=== PATIENT | male | born 1960 | race Caucasian/White ===

== ENCOUNTER 2018-04-10 01:03 | Emergency (ER) | payer OTHER, SELFPAY ==
[2018-04-10 01:04] VITALS: BP 181/92; PULSE 107; RESP 15; TEMP 36.7; O2SAT 96; BMI 27.3
--- NOTE | 2018-04-10 01:32 | ED.DCSUM_ITS ---
- ER Visit Summary Date of Service: 04/10/18 Chief Complaint: [] Left eye pain secondary to foreign body sensation History of Present Illness: The patient is a 57 M complaining of foreign body sensation in his left eye. Since yesterday. He was cleaning out tree limbs and got some branches in his left eye. He is been using Visine. Comes in for further pain and burning tonight. 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 Denies any visual difficulty. Physical Examination: Vital signs reviewed General: Well-nourished well-developed Head: Normocephalic atraumatic Eyes: Pupils equal round and reactive to light extraocular movements intact. Positive left conjunctival irritation redness. Using fluoroscopy seen there is a punctate corneal abrasion centrally over the pupil. No foreign body. ENT: TMs clear no hemotympanum no trauma Neck: Nontender full range of motion Cardiovascular: Regular rate rhythm no murmurs normal S1-S2 Respiratory: No distress clear to auscultation bilaterally chest nontender Abdomen: Soft nontender nondistended normal bowel sounds no masses Back: Nontender no CVA tenderness Extremities: Nontender active range of motion ?4 extremities no trauma Skin: Normal color no trauma Neuro alert oriented cranial nerves II through XII intact normal strength sensation reflexes Test Results: [] Emergency Department Course and Treatment: [] Tetracaine was instilled with good anesthesia. Patient given bacitracin ophthalmic for his corneal abrasion. We will follow-up as an outpatient Treatment Plan: [] Disposition: [] Impression: [] Cornea abrasion This note was generated with [employer] dictation software. It may contain incorrect words, spelling, and punctuation that were not noted in review of the chart prior to signing ED Disposition - Plan for ED Patient: Referrals: Ronak Simmons MD [Primary Care Provider] -
--- NOTE | 2018-04-10 01:32 | ED.DEP ---
ED Disposition - Plan for ED Patient: Disposition: Home or Assisted Living Instructions: ED Eye Injury Corneal Abrasion Referrals: Bart Connor MD [STAFF PHYSICIAN] - Additional Instructions: Use the antibiotic ointment 4 times a day for a week
[2018-04-10] MEDS: Fluorescein 1 MG STRIP 1 STRIP LEFT EYE (01:40)
[2018-04-10 01:42] VITALS: PULSE 107; RESP 15; O2SAT 96
== END 2018-04-10 01:43 | disposition home or self-care (01) ==
PROVIDERS: Emergency Provider Emergency Medicine; Family Provider Family Medicine; PCP Family Medicine
DX: S05.02XA Injury of conjunctiva and corneal abrasion without foreign body, left eye, initial encounter (principal); X58.XXXA Exposure to other specified factors, initial encounter; Y93.H9 Activity, other involving exterior property and land maintenance, building and construction; Y92.007 Garden or yard of unspecified non-institutional (private) residence as the place of occurrence of the external cause; Y99.8 Other external cause status
CPT/HCPCS: 99282

== ENCOUNTER 2019-01-03 19:29 | Inpatient (IN) | payer OTHER, SELFPAY ==
[2019-01-03] VITALS (12 sets, daily range): BP systolic 100–138; BP diastolic 50–70; PULSE 77–88; RESP 12–18; TEMP 36.2–36.6; O2SAT 94–99; BMI 27.0; BMI 26.9
[2019-01-03] MEDS: 0.9% Normal Saline 1,000 ML 1000 ML IV (20:01)
[2019-01-03] MEDS: Ondansetron 4 MG/2 ML Vial IV (20:01)
[2019-01-03 20:03] LABS: Absolute Lymphocyte Count 3.63 X10^3/uL (0.83-4.51); Absolute Neutrophil Count 10.1 X10^3/uL (2.0-7.7); Basophil# 0.06 X10^3/uL; Basophil% 0.4 % (0-1); Eosinophil# 0.16 X10^3/uL; Eosinophils% 1.1 % (0-5); Hematocrit 31.8 % (40-54); Hemoglobin 10.7 g/dL (13.0-16.5); Lymphocyte # 3.63 X10^3/ul (4.0); Lymphocyte % 24.2 % (19-41); Mean Corp Hgb Conc 33.6 g/dL (32-36); Mean Corpuscular Hgb 33.1 pg (27.0-32.0); Mean Corpuscular Volume 98.5 fL (80-94); Mean Platelet Vol. 9.6 fl (6.2-12.0); Monocyte# 0.87 X10^3/uL; Monocyte% 5.8 % (0-10); NRBC Flagged by Analyzer 0 % (0-5); Neutrophil # 10.08 X10^3/uL (2.7-7.7); Platelet Count 265 K/mm3 (150-450); RBC Distribution Width CV 12.9 % (11.6-14.6); RBC Distribution Width SD 46.4 fl (35.1-43.9); Red Blood Count 3.23 M/mm3 (4.6-6.2)
[2019-01-03 20:13] LABS: Anion Gap 10 (5-15); BUN 11 mg/dL (7-18); BUN/Creat Ratio 11.8 RATIO (10-20); Calcium,Total 7.9 mg/dL (8.5-10.1); Chloride 107 mmol/L (98-107); Creatinine, Serum 0.93 mg/dL (0.70-1.30); EST Glomerular Filtration Rate 89 mL/min (>60); Est Glom Filt Rate - Afr Amer 107 mL/min (>60); Estimated Creatinine Clearance 83.76 ml/min; Glucose 140 mg/dL (74-106); Potassium 3.4 mmol/L (3.5-5.1); Sodium Level 138 mmol/L (136-145)
[2019-01-03 20:36] LABS: Lactic Acid 4.2 mmol/L (0.4-2.0)
[2019-01-03] MEDS: 0.9% Normal Saline 1,000 ML 999 ML IV (20:45)
--- NOTE | 2019-01-03 20:56 | ED.DCSUM_ITS ---
- ER Visit Summary Date of Service: 01/03/19 Chief Complaint: [Rectal bleeding] History of Present Illness: The patient is a 58 M [presents to the emergency department with rectal bleeding that started around 1 PM today. Patient states that he has had about 15 episodes of bright red blood per rectum. Patient denies any abdominal pain. Patient has not had symptoms like this before. He is not on any blood thinners. Patient does have history of hypertension. Patient has had some hematuria issues over last couple of weeks. Patient denies recent travel or surgery. He denies antibiotic usage. He denies any chest pain or shortness of breath. Patient apparently had to use the restroom this evening and upon standing felt lightheaded and passed out. The significant other states that she saw twitching that lasted 2 to 3 minutes and she was worried about seizure. EMS was called. On arrival patient denies any abdominal pain. He denies any headache or injury.] Physical Examination: [HEENT-PERRLA, EOMI. Cranial nerves II through XII grossly intact. TMs clear. Mucous membranes moist. No adenopathy. Cardiovascular-regular rate and rhythm without murmur or ectopy Lungs-clear to auscultation, chest wall stable without crepitus or subcu emphysema Abdomen-normoactive bowel sounds, soft, nontender, no rebound or rigidity, no peritoneal signs. Rectal exam-patient has bright red blood around the rectum however there are no hemorrhoids or fissures noted. Extremities-intact ?4, normal range of motion, normal pulses, atraumatic] Test Results: [CBC with differential white count of 15,000, hemoglobin 10.7, hematocrit 32, placed 265. Chemistries unremarkable. BUN was 21) 0.93. Lactate was elevated at 4.2.] Emergency Department Course and Treatment: [She had an IV line established and was given a liter normal same fluid bolus followed by second liter. Type and screen was ordered. Patient is not having any abdominal discomfort at this time. I did discuss case with Dr. Bola Oropeza who is on for general surgery. Hospitalist will admit patient. Source of the bleeding is unclear at this time as patient did have a colonoscopy last time about 5 years ago. In the differential would be diverticular bleed versus ischemic colitis.] Treatment Plan: [Admit] Disposition: [Admit] Impression: [Lower GI bleed Syncope] This note was generated with [employer] dictation software. It may contain incorrect words, spelling, and punctuation that were not noted in review of the chart prior to signing ED Disposition - Plan for ED Patient: Referrals: Ronak Simmons MD [Primary Care Provider] -
--- NOTE | 2019-01-03 20:59 | HP.PCM_ITS ---
Problem List (1) Hemorrhagic shock Status: Acute (2) Rectal bleeding Status: Acute (3) Acute blood loss anemia Status: Acute (4) ETOH abuse Status: Chronic (5) Tobacco use Status: Chronic (6) HTN (hypertension) Status: Chronic Qualifiers: Hypertension type: essential hypertension Qualified Code(s): I10 - Essential (primary) hypertension (7) GERD (gastroesophageal reflux disease) Status: Chronic Qualifiers: Esophagitis presence: esophagitis presence not specified Qualified Code(s): K21.9 - Gastro-esophageal reflux disease without esophagitis History of Present Illness Date of Admission: 01/03/19 Chief Complaint: BRBPR, Syncopal event The patient is a 58 y/o M w/ PMHx: HTN who presents to the [facility] ED on 01/03/19 with history of bleeding per rectum, bright red in appearance currently, noted to have started at ~ 1 pm on day of ED presentation with initially onset diarrhea, ~ 15 bouts, initially bright red blood mixed with stools, but eventually become solely blood and this evening upon standing from toilet he had near syncopal event without LOC with lightheadedness and dizziness, did not hit his head with again recurrent episode while with EMS; however, he was noted to have loss of consciousness that that time, short in duration with EMS noted hypotensive, SBP in the 80s. Patient denied any abdominal pain or cramping with this presentation. He denied any associated fevers or chills. Work-up in the ED included T 97.7, heart rate 88, BP 100/64, respiratory rate 16, 95% on room air, CBC with WBC 15, hemoglobin 10.7, platelet 265 with left shift, BMP with potassium 3.4, glucose 140, lactic acid 4.2, type and screen performed per ED, rectal examination with no fissures or hemorrhiods. In the ED patient administered normal saline 2L, Zofran. Dr. Camacho was consulted per ED and amenable to evaluation of patient. Past Medical History Past Medical History (Chronic Problems): Chronic Problems ETOH abuse (Chronic) Tobacco use (Chronic) HTN (hypertension) (Chronic) GERD (gastroesophageal reflux disease) (Chronic) Allergies No Known Allergies Allergy (Verified 01/03/19 19:30) Home Medications: Ambulatory Orders Medication Instructions Recorded Acetaminophen [Tylenol Extra 1,000 mg PO DAILY PRN PRN 01/03/19 Strength] Valsartan [Diovan] 80 mg PO DAILY 01/03/19 Surgical History: - - Patient denies any prior surgical history. Psychiatric History: No pertinent psych hx Lives: Spouse/ Significant Other Smoking Status: Current every day smoker - Patient smokes approximately 1/2 pack/day cigarette tobacco usage. Tobacco Use: Cigarettes Alcohol: Heavy - Patient notes 3-4 normal size beers daily. Drugs: None - *Family History Maternal History Items: - - Patient notes a maternal family history of heart disease and diabetes. Paternal History Items: - - Patient notes a paternal family history of heart disease and diabetes. Review of Systems Constitutional: Reports: Anorexia, Malaise, Weakness, Fatigue. Denies: Chills, Fever, Weight Change HEENT: Denies: Head Aches, Sinus Congestion, Sinus Drainage Cardiovascular: Reports: Light Headedness, Syncope. Denies: Chest Pain, Chest Pressure, Chest Tightness, Orthopnea, Palpitations, Paroxysmal Noc. Dyspnea Respiratory: Denies: Cough, Shortness of Breath, Shortness of breath at rest, Shortness of breath upon exertion, Sputum production, Wheezing Gastrointestinal: Reports: Diarrhea, - - Red blood per rectum.. Denies: Abdominal Pain, Nausea, Vomiting Genitourinary: Denies: Dysuria Musculoskeletal: Reports: Joint Pain. Denies: Joint Tenderness Skin: Denies: Rash, Wounds Neurological: Denies: Numbness, Tingling, Focal weakness Psychiatric: Denies: Anxiety, Depression, Homicidal Ideations, Suicidal Ideations Hematologic/ Lymphatic: Reports: Anemia. Denies: Easy Bruising, Easy Bleeding VTE Information - Inpt Only VTE Present on Admission: No VTE Mechan Device Prophylaxis: SCD's VTE Pharm Prophylaxis ordered?: No Reason prophylaxis not ordered:: Medical Contraindication Patient Problems: Active and Suspected Problems Hemorrhagic shock (Acute) Rectal bleeding (Acute) Acute blood loss anemia (Acute) Subjective: Seated upright in ED bed, mildly pale pallor, currently no acute distress. Objective: Physical Examination: General: awake, alert, oriented x 3 and cooperative, seated upright in the ED bed in no apparent distress. Skin: Pale color, turgor, no icterus, cyanosis. HEENT: AT/NC, EOMI, PERRLA, moderately dry MM, no carotid bruits or JVD noted. Lungs: Diminished breath sounds bilaterally, greater bilateral bases, no rales, ronchi or wheezing. Heart: Regular rate and rhythm; no gallop, rub audible. Abdomen: soft, NTTP, ND, hyperactive BS, no HSM, active BRBPR without fissures/hemorrhoids. Extremities: no cyanosis, clubbing, or edema. Neurological: patient awake, alert, oriented x 3; cognitive function intact; pupils equally reactive to light and accomodation; cranial nerves II-XII grossly normal, moving all 4 extremities, no focal deficits, strength moderately to severely globally Hailey secondary to acute presentation. Psychiatric: affect appears fatigued, mildly flat, no acute evidence of depressive or anxiety feelings. - Physical Exam Vitals/I&O's: Vital Signs Temp Pulse Resp BP Pulse Ox 97.7 F L 86 17 101/58 L 96 01/03/19 19:30 01/03/19 20:43 01/03/19 20:43 01/03/19 20:43 01/03/19 20:43 Oxygen Delivery Method Room Air Weight: 178 lb Body Mass Index (BMI) 27.0 Intake and Output for Last 24 Hours 01/01/19 01/02/19 01/03/19 23:59 23:59 23:59 Intake Total 1000 / 1000 Balance 1000 / 1000 Laboratory Results 01/03/19 19:32: WBC 15.0 H, RBC 3.23 L, Hgb 10.7 L, Hct 31.8 L, MCV 98.5 H, MCH 33.1 H, MCHC 33.6, RDW Std Deviation 46.4 H, RDW Coeff of Breanne 12.9, Plt Count 265, MPV 9.6, Immature Gran % (Auto) 1.500 H, Neut % (Auto) 67.0, Lymph % (Auto) 24.2, Union % (Auto) 5.8, Eos % (Auto) 1.1, Baso % (Auto) 0.4, Absolute Neuts (auto) 10.1 H, Absolute Lymphs (auto) 3.63, Nucleated RBC % 0 01/03/19 19:32: Sodium 138, Potassium 3.4 L, Chloride 107, Carbon Dioxide 21.0, Anion Gap 10, BUN 11, Creatinine 0.93, Estim Creat Clear Calc 83.76, Est GFR (MDRD) Af Amer 107, Est GFR (MDRD) Non-Af 89, BUN/Creatinine Ratio 11.8, Glucose 140 H, Calcium 7.9 L 01/03/19 19:32: Blood Type A POSITIVE, Antibody Screen NEGATIVE 01/03/19 19:55: Lactic Acid 4.2 H* Current Medications Sodium Chloride () 1,000 mls @ 999 mls/hr IV .Q1H1M ONE Stop: 01/03/19 21:49 Last Admin: 01/03/19 20:45 Dose: 999 mls/hr Documented by: Assessment/Plan All Active Problems Hemorrhagic shock (Acute) Rectal bleeding (Acute) Acute blood loss anemia (Acute) The patient is a 58 y/o M w/ PMHx: HTN who presents to the [facility] ED on 01/03/19 with history of bleeding per rectum, bright red in appearance currently, noted to have started at ~ 1 pm on day of ED presentation with initially onset diarrhea, ~ 15 bouts, initially bright red blood mixed with stools, but eventually become solely blood and this evening upon standing from toilet he had near syncopal event without LOC with lightheadedness and dizziness, did not hit his head with again recurrent episode while with EMS; however, he was noted to have loss of consciousness that that time, short in duration. 1. Hemorrhagic Shock secondary to Acute Rectal Bleeding w/ resultant Acute Blood Loss Anemia w/ ? Acute Bacterial Colitis: Admission Hgb 10.7 prior to this 14 appears baseline but that was in 2015, unclear exact etiology, possibly infection given history of initial diarrhea with WBC 15 with L shift. Given Hypotension concurrently, improved some with IVFs but ongoing active bleeding, will admit to the ICU, maintain on IVFs, obtain serial H+H q 4 hours, obtain T+S w/ cross for PRBC administration with planned administration of 2 u initially given hypotension and syncope with his bleeding, NPO status, maintain on IV PPI, obtain stool cultures/c-diff if recurrent diarrhea, initiate zosyn given unclear if possible colitis related, pending Dr. Camacho, General Surgery and Dr. Garcia, ICU physician consultations. Defer CT A/P upon admission given hypotension, abdomen benign upon evaluation and desire to stabilize in the ICU. May de-escalate abx therapy. 2. Hypertension: Holding patient Diovan given acute presentation with hypotension, restart once clinically appropriate. 3. Tobacco Abuse: Encouraged cessation, inpatient consultation per RT, NR if desired. 4. EtOH Abuse: Patient notes routine consumption of at least 3-4 normal-sized beers per day. Patient states that he has been days without and never had any withdrawal symptoms however to be cautious will maintain on CIWA protocol, MVI, thiamine and folic acid. Management consulted for substance abuse. Magnesium and phosphorus levels requested. 5. GERD: Maintained on IV PPI. 6. DVT prophylaxis: SCDs, defer chemoprophylaxis given acute presentation as noted #1. Code Visit Inpatient E&M: 55821 Init Hosp L3
[2019-01-03 23:02] LABS: Hematocrit 27.9 % (40-54); Hemoglobin 9.2 g/dL (13.0-16.5)
[2019-01-03 23:11] LABS: Phosphorus 2.5 mg/dL (2.5-4.9)
[2019-01-04] VITALS (28 sets, daily range): BP systolic 98–157; BP diastolic 41–86; PULSE 71–90; RESP 12–19; TEMP 35.9–36.8; O2SAT 93–98
[2019-01-04] LABS: Reflex Lactate? Y
[2019-01-04 00:43] LABS: Lactic Acid 2.5 mmol/L (0.4-2.0)
[2019-01-04 03:22] LABS: Hematocrit 29.6 % (40-54); Hemoglobin 9.7 g/dL (13.0-16.5)
[2019-01-04 03:36] LABS: Anion Gap 6 (5-15); BUN 10 mg/dL (7-18); BUN/Creat Ratio 12.6 RATIO (10-20); Calcium,Total 7.3 mg/dL (8.5-10.1); Chloride 112 mmol/L (98-107); Creatinine, Serum 0.79 mg/dL (0.70-1.30); EST Glomerular Filtration Rate 107 mL/min (>60); Est Glom Filt Rate - Afr Amer 129 mL/min (>60); Estimated Creatinine Clearance 98.61 ml/min; Glucose 110 mg/dL (74-106); Potassium 4.4 mmol/L (3.5-5.1); Sodium Level 141 mmol/L (136-145)
--- NOTE | 2019-01-04 06:48 | CON.PCM_ITS ---
Reason for Consult Date of Consultation: 01/04/19 Reason for Consultation: Rectal bleeding, hypotensive History of Present Illness: The patient is a 58-year-old male, with a history as outlined below, who presented to the emergency department on January 03 with complaints of rectal bleeding. The patient reports the presence of diarrhea, which began yesterday with upwards of 15 bowel movements. The patient did report that during the last several bowel movements, he did have bright red blood per rectum. Apparently, during EMS transportation the patient became hypotensive and reportedly passed out. The patient denies ever having experienced an episode similar to this in the past. The patient does currently smoke 0.5 packs of cigarettes per day. In addition, he does routinely drink 2-4 beers per night. He has never experienced any withdrawal symptoms. He does not regularly utilize NSAIDs on a daily basis. He denies the presence of abdominal pain, nausea or vomiting. On presentation to the emergency department, the patient was noted to be afebrile and hemodynamically stable. He was maintaining appropriate oxygen saturations on room air. Laboratory evaluation revealed an elevated white blood cell count to 15,000. Hemoglobin was noted to be 10.7 g/dL. Chemistry profile was notable for a potassium of 3.4. Lactate was elevated to 4.2. The patient was provided with supplemental IV fluids. The case was discussed with general surgery. Type and cross along with orders for blood transfusion were placed. The patient was subsequently admitted to the medical intensive care unit for further management. Overnight, nursing staff reports no further episodes of rectal bleeding. The patient has remained hemodynamically stable. He has been and continues to be afebrile. He is currently documented to be overall net +2 L for the hospital admission. Past Medical History Past Medical History (Chronic Problems): Chronic Problems ETOH abuse (Chronic) Tobacco use (Chronic) HTN (hypertension) (Chronic) GERD (gastroesophageal reflux disease) (Chronic) Allergies No Known Allergies Allergy (Verified 01/03/19 19:30) Home Medications: Ambulatory Orders Medication Instructions Recorded Acetaminophen [Tylenol Extra 1,000 mg PO DAILY PRN PRN 01/03/19 Strength] Valsartan [Diovan] 80 mg PO DAILY 01/03/19 Surgical History: - - Patient denies any prior surgical history. Psychiatric History: No pertinent psych hx Lives: Spouse/ Significant Other Smoking Status: Current every day smoker - Patient smokes approximately 1/2 pack/day cigarette tobacco usage. Tobacco Use: Cigarettes Alcohol: Heavy - Patient notes 3-4 normal size beers daily. Drugs: None - *Family History Maternal History Items: - - Patient notes a maternal family history of heart disease and diabetes. Paternal History Items: - - Patient notes a paternal family history of heart disease and diabetes. Review of Systems Constitutional: Denies: Chills, Fever, Weight Change Eyes: Denies: Blurred vision, Double vision HEENT: Denies: Head Aches, Sinus Congestion, Sinus Drainage Cardiovascular: Denies: Chest Pain, Palpitations Respiratory: Denies: Cough, Shortness of breath at rest, Sputum production Gastrointestinal: Reports: Diarrhea, Hematochezia. Denies: Abdominal Pain Genitourinary: Denies: Dysuria Musculoskeletal: Denies: Joint Pain, Joint Tenderness Skin: Denies: Rash, Wounds Neurological: Reports: Balance problems Psychiatric: Denies: Anxiety, Depression, Homicidal Ideations, Suicidal Ideations Hematologic/ Lymphatic: Reports: Anemia, Hx of blood transfusion Patient Problems: Active and Suspected Problems Hemorrhagic shock (Acute) Rectal bleeding (Acute) Acute blood loss anemia (Acute) Objective: The patient's most recent lab work, culture data and imaging studies have all been personally reviewed. - Physical Exam Vitals/I&O's: Vital Signs Temp Pulse Resp BP Pulse Ox 97.9 F 78 18 109/68 95 01/04/19 04:44 01/04/19 06:00 01/04/19 06:00 01/04/19 06:00 01/04/19 06:00 Oxygen Delivery Method Room Air Weight: 178 lb 9.191 oz Body Mass Index (BMI) 26.9 Intake and Output for Last 24 Hours 01/02/19 01/03/19 01/04/19 23:59 23:59 23:59 Intake Total 2576 / 2585.38 713.00 / 713.00 Output Total 400 / 400 875 / 875 Balance 2176 / 2185.38 -162.00 / -162.00 General: Alert, Oriented x3, Cooperative, No apparent distress HEENT: Atraumatic, PERRLA, Normocephalic Oral: No Gingival or Mucosal Lesions/ Ulcerations Neck: Supple, No Nodes, Trachea Midline Lungs: No rhonchi, No wheeze, No rales, Diminished Cardiovascular: Regular rate, Regular Rhythm, Normal S1, Normal S2 Abdomen: Bowel Sounds Present, Soft, Non Tender Extremities: No clubbing, No cyanosis, No edema Skin: No breakdown Musculoskeletal: No Tenderness to Palpation of Joints or Extremities Lymphatic: No Cervical, Supraclavicular, or Inguinal Adenopathy Neurological: Cranial nerves II-XII grossly intact, Neuro grossly intact Psych/Mental Status: Normal Affect, Appropriate Labs (Last 48 Hours) 01/03/19 01/03/19 01/03/19 19:32 19:32 19:32 WBC 15.0 H RBC 3.23 L Hgb 10.7 L Hct 31.8 L MCV 98.5 H MCH 33.1 H MCHC 33.6 RDW Std Deviation 46.4 H RDW Coeff of Breanne 12.9 Plt Count 265 MPV 9.6 Immature Gran % (Auto) 1.500 H Neut % (Auto) 67.0 Lymph % (Auto) 24.2 [place] % (Auto) 5.8 Eos % (Auto) 1.1 Baso % (Auto) 0.4 Absolute Neuts (auto) 10.1 H Absolute Lymphs (auto) 3.63 Nucleated RBC % 0 Sodium 138 Potassium 3.4 L Chloride 107 Carbon Dioxide 21.0 Anion Gap 10 BUN 11 Creatinine 0.93 Estim Creat Clear Calc 83.76 Est GFR (MDRD) Af Amer 107 Est GFR (MDRD) Non-Af 89 BUN/Creatinine Ratio 11.8 Glucose 140 H Lactic Acid Calcium 7.9 L Phosphorus Magnesium Total Bilirubin Direct Bilirubin AST ALT Alkaline Phosphatase Total Protein Albumin Blood Type A POSITIVE Antibody Screen NEGATIVE Crossmatch 01/03/19 01/03/19 01/03/19 19:32 19:32 19:55 WBC RBC Hgb Hct MCV MCH MCHC RDW Std Deviation RDW Coeff of Breanne Plt Count MPV Immature Gran % (Auto) Neut % (Auto) Lymph % (Auto) [place] % (Auto) Eos % (Auto) Baso % (Auto) Absolute Neuts (auto) Absolute Lymphs (auto) Nucleated RBC % Sodium Potassium Chloride Carbon Dioxide Anion Gap BUN Creatinine Estim Creat Clear Calc Est GFR (MDRD) Af Amer Est GFR (MDRD) Non-Af BUN/Creatinine Ratio Glucose Lactic Acid 4.2 H* Calcium Phosphorus 2.5 Magnesium 2.0 Total Bilirubin Direct Bilirubin AST ALT Alkaline Phosphatase Total Protein Albumin Blood Type Antibody Screen Crossmatch See Detail 01/03/19 01/03/19 01/03/19 22:45 22:45 22:45 WBC RBC Hgb 9.2 L Hct 27.9 L MCV MCH MCHC RDW Std Deviation RDW Coeff of Breanne Plt Count MPV Immature Gran % (Auto) Neut % (Auto) Lymph % (Auto) [place] % (Auto) Eos % (Auto) Baso % (Auto) Absolute Neuts (auto) Absolute Lymphs (auto) Nucleated RBC % Sodium Potassium Chloride Carbon Dioxide Anion Gap BUN Creatinine Estim Creat Clear Calc Est GFR (MDRD) Af Amer Est GFR (MDRD) Non-Af BUN/Creatinine Ratio Glucose Lactic Acid Cancelled 2.5 H Calcium Phosphorus Magnesium Total Bilirubin Direct Bilirubin AST ALT Alkaline Phosphatase Total Protein Albumin Blood Type Antibody Screen Crossmatch 01/04/19 01/04/19 01/04/19 03:15 03:15 03:15 WBC RBC Hgb 9.7 L Hct 29.6 L MCV MCH MCHC RDW Std Deviation RDW Coeff of Breanne Plt Count MPV Immature Gran % (Auto) Neut % (Auto) Lymph % (Auto) [place] % (Auto) Eos % (Auto) Baso % (Auto) Absolute Neuts (auto) Absolute Lymphs (auto) Nucleated RBC % Sodium 141 Potassium 4.4 Chloride 112 H Carbon Dioxide 23.0 Anion Gap 6 BUN 10 Creatinine 0.79 Estim Creat Clear Calc 98.61 Est GFR (MDRD) Af Amer 129 Est GFR (MDRD) Non-Af 107 BUN/Creatinine Ratio 12.6 Glucose 110 H Lactic Acid Calcium 7.3 L Phosphorus Magnesium Total Bilirubin Pending Direct Bilirubin Pending AST Pending ALT Pending Alkaline Phosphatase Pending Total Protein Pending Albumin Pending Blood Type Antibody Screen Crossmatch Current Medications Acetaminophen (Tylenol) 650 mg PO Q6H PRN PRN PRN Reason: Non-cardiac pain (mod-severe) Hydrocodone Bitart/Acetaminophen ([place] 5mg-325mg) 1 - 2 tablet PO Q4H PRN PRN PRN Reason: Pain Score 4-10/10 Albuterol Sulfate (Ventolin Aerosols) 2.5 mg INHALATION Q2H PRN PRN PRN Reason: dyspnea, wheezing Dextrose (D50w Syringe) 0 gm IV X1 PRN; Protocol PRN Reason: Hypoglycemia Folic Acid (Folic Acid) 1 mg PO DAILY@0800 [facility] Stop: 01/06/19 08:01 Glucagon () 1 mg IM .X1 PRN PRN Reason: Hypoglycemia Hydralazine HCl (Apresoline Iv) 10 mg IV Q4H PRN PRN PRN Reason: SBP > 160 Sodium Chloride () 1,000 mls @ 150 mls/hr IV .Q6H40M [facility] Last Admin: 01/04/19 01:40 Dose: Not Given Documented by: Pantoprazole Sodium 40 mg/ (Sodium Chloride) 110 mls @ 330 mls/hr IV Q12 [facility] Last Infusion: 01/03/19 23:09 Dose: Infused Documented by: Piperacillin Sod/Tazobactam (Sod 3.375 gm/ Sodium Chloride) 50 mls @ 12.5 mls/hr IV Q8 [facility] Last Admin: 01/04/19 05:47 Dose: 12.5 mls/hr Documented by: Sodium Chloride () 500 mls @ 15 mls/hr IV PRN PRN PRN Reason: Blood Transfusion Last Infusion: 01/04/19 03:45 Dose: 0 mls/hr Documented by: Sodium Chloride () 250 mls @ 15 mls/hr IV .[id number] PRN PRN Reason: Saline Flush Last Infusion: 01/04/19 05:47 Dose: 0 mls/hr Documented by: Lorazepam (Ativan) 2 mg PO Q2H PRN PRN; Protocol PRN Reason: CIWA score > 8 but <15 Lorazepam (Ativan) 2 mg PO UD PRN; Protocol PRN Reason: CIWA score >/=15. Lorazepam (Ativan) 2 mg IV Q2H PRN PRN; Protocol PRN Reason: CIWA score > 8 but <15 Lorazepam (Ativan) 2 mg IV UD PRN; Protocol PRN Reason: CIWA score >/=15. Morphine Sulfate () 1 - 2 mg IV Q4H PRN PRN PRN Reason: Pain Score 1-10/10 Multivitamins/Minerals (Multivitamin With Minerals) 1 tablet PO DAILYCM [facility] Ondansetron HCl (Zofran) 4 mg IV Q8H PRN PRN PRN Reason: NAUSEA/VOMITING Sodium Chloride () 10 - 40 ml IV UD PRN PRN Reason: SALINE FLUSH Thi[facility]) [facility] Stop: 01/06/19 17:01 Assessment/Plan Active and Suspected Problems Hemorrhagic shock (Acute) Rectal bleeding (Acute) Acute blood loss anemia (Acute) RECOMMENDATIONS: 1. I do not see an indication for the transfusion of any additional blood products. 2. Okay to discontinue Zosyn and supplemental IV fluids. 3. Plans for endoscopic evaluation, potentially as outpatient, depending on the patient's clinical course. 4. Nicotine replacement therapy can be offered to the patient while admitted to the hospital. 5. Monitor blood counts daily. 6. Continue PPI. 7. Diet can be advanced to clear liquids, following discussion with surgery. IMPRESSIONS: 1. Hematochezia/anemia The patient presented with bright red blood per rectum and a hemoglobin which reached a ham[place] of 9.2 g/dL. Although the patient was initially reported to be hypotensive during EMS transportation, he has remained hemodynamically stable while in the ICU. The patient did receive supplemental IV fluids and has been transfused 2 units of packed red blood cells. He has not experienced any fur ther GI blood loss. The patient was evaluated by general surgery this morning with plans for endoscopic evaluation, which could potentially be accomplished on an outpatient basis, depending on the patient's clinical course. At this time, we will introduce clear liquids and continue to monitor the patient clinically. I do not see an indication for transfusion of any additional blood products. Supplemental IV fluids can be discontinued. Zosyn can also be discontinued from my perspective. Continue PPI therapy. 2. Continuous tobacco dependency I personally spent 5 minutes discussing the deleterious effects of continued tobacco use with the patient, including modalities which could be utilized to achieve a smoke-free lifestyle. If interested, the patient can be offered nicotine replacement therapy while admitted to the hospital. 3. Alcohol dependency The patient denies ever having experienced any withdrawal symptoms. CIWA protoc ol has been initiated. 4. Hypertension Complicates care, management, recovery and prognosis. Home antihypertensives are currently on hold. This note was generated with [employer] software. It may contain incorrect words, spelling, and punctuation that were not noted in checking the note before signing. Code Visit Inpatient E&M: 16331 Init Hosp L3 - Behavior Interventions Behavior Intervention: 43861 Smoking Cessation 3-10 min
[2019-01-04 07:01] LABS: AST(SGOT) 12 U/L (15-37); Alanine Aminotransfer ALT/SGPT 20 U/L (16-61); Albumin, Serum 2.6 g/dL (3.2-5.0); Alkaline Phosphatase 60 U/L (45-117); Bilirubin, Direct 0.14 mg/dL (0.00-0.30); Globulin 2.7 g/dL (2.2-4.2); Protein, Total 5.3 g/dL (6.4-8.2)
[2019-01-04 07:09] LABS: International Normalized Ratio 1.1; Prothrombin Time (Protime)PT. 13.7 SECONDS (11.7-14.9)
[2019-01-04] MEDS: 0.9% Normal Saline 1,000 ML 150 ML IV (07:09)
[2019-01-04] MEDS: Thiamine Hydrochloride 100 MG Tablet PO ×2 (08:15→17:12)
[2019-01-04] MEDS: Folic Acid 1 MG Tablet PO (08:15)
[2019-01-04] MEDS: Multivitamins,Ther W-Minerals Tablet 1 TABLET PO (08:15)
[2019-01-04 08:33] LABS: Absolute Lymphocyte Count 1.64 X10^3/uL (0.83-4.51); Absolute Neutrophil Count 5.2 X10^3/uL (2.0-7.7); Basophil# 0.03 X10^3/uL; Basophil% 0.4 % (0-1); Eosinophil# 0.06 X10^3/uL; Eosinophils% 0.8 % (0-5); Hematocrit 32.2 % (40-54); Hemoglobin 10.7 g/dL (13.0-16.5); Lymphocyte # 1.64 X10^3/ul (4.0); Mean Corp Hgb Conc 33.2 g/dL (32-36); Mean Corpuscular Hgb 32.2 pg (27.0-32.0); Mean Platelet Vol. 9.3 fl (6.2-12.0); Monocyte# 0.41 X10^3/uL; Monocyte% 5.5 % (0-10); NRBC Flagged by Analyzer 0 % (0-5); Neutrophil # 5.19 X10^3/uL (2.7-7.7); Neutrophil % 69.4 % (47-70); Platelet Count 202 K/mm3 (150-450); RBC Distribution Width CV 14.5 % (11.6-14.6); RBC Distribution Width SD 51.2 fl (35.1-43.9); Red Blood Count 3.32 M/mm3 (4.6-6.2); White Blood Count 7.5 K/mm3 (4.4-11.0)
[2019-01-04] MEDS: 0.9% Saline Lock 10 ML Syringe IV (09:50)
--- NOTE | 2019-01-04 10:20 | PCM.PN.HOSP ---
Patient Problems: Active and Suspected Problems Hemorrhagic shock (Acute) Rectal bleeding (Acute) Acute blood loss anemia (Acute) Subjective: Patient seen and examined. He was admitted with a complaint of bright red bleeding per rectum with associated syncope. On admission hemoglobin was 10.7. Lactic acid was elevated at 4.2. He was hydrated with IV fluids. General surgery on board. Patient has no complaints this morning. He has not had any rectal bleeding since admission. He denies any lightheadedness or dizziness, palpitations, chest pain, diarrhea vomiting. Review of systems otherwise negative. Vitals/I&O's: Vital Signs Temp Pulse Resp BP Pulse Ox 98.2 F 84 18 148/86 H 97 01/04/19 08:00 01/04/19 10:00 01/04/19 10:00 01/04/19 10:00 01/04/19 10:00 Oxygen Delivery Method Room Air Weight: 178 lb 9.191 oz Body Mass Index (BMI) 26.9 Intake and Output for Last 24 Hours 01/02/19 01/03/19 01/04/19 23:59 23:59 23:59 Intake Total 2576 / 2585.38 1675.50 / 1675.50 Output Total 400 / 400 875 / 875 Balance 2176 / 2185.38 800.50 / 800.50 General: Alert, Oriented x3, Cooperative, No apparent distress HEENT: Atraumatic, PERRLA, EOMI, Normocephalic Oral: Moist Mucosa Neck: Supple, No JVD, Negative Carotid Bruits Lungs: Clear to auscultation, Normal air movement, No rhonchi, No wheeze, No rales Cardiovascular: Regular rate, Regular Rhythm, Normal S1, Normal S2, No murmurs Abdomen: Bowel Sounds Present, Soft, Non Tender, Non-Distended, No Hepato-splenomegaly Extremities: No clubbing, No cyanosis, No edema, Capillary Refill Less than 3 Seconds Skin: No rashes, No breakdown Musculoskeletal: No Tenderness to Palpation of Joints or Extremities Lymphatic: No Cervical, Supraclavicular, or Inguinal Adenopathy Neurological: Cranial nerves II-XII grossly intact Psych/Mental Status: Normal Affect, Appropriate, Alert and oriented to time, place, person, mood and affect Laboratory Results 01/03/19 19:32: WBC 15.0 H, RBC 3.23 L, Hgb 10.7 L, Hct 31.8 L, MCV 98.5 H, MCH 33.1 H, MCHC 33.6, RDW Std Deviation 46.4 H, RDW Coeff of Breanne 12.9, Plt Count 265, MPV 9.6, Immature Gran % (Auto) 1.500 H, Neut % (Auto) 67.0, Lymph % (Auto) 24.2, [place] % (Auto) 5.8, Eos % (Auto) 1.1, Baso % (Auto) 0.4, Absolute Neuts (auto) 10.1 H, Absolute Lymphs (auto) 3.63, Nucleated RBC % 0 01/03/19 19:32: Sodium 138, Potassium 3.4 L, Chloride 107, Carbon Dioxide 21.0, Anion Gap 10, BUN 11, Creatinine 0.93, Estim Creat Clear Calc 83.76, Est GFR (MDRD) Af Amer 107, Est GFR (MDRD) Non-Af 89, BUN/Creatinine Ratio 11.8, Glucose 140 H, Calcium 7.9 L 01/03/19 19:32: Blood Type A POSITIVE, Antibody Screen NEGATIVE 01/03/19 19:32: Phosphorus 2.5, Magnesium 2.0 01/03/19 19:32: Crossmatch See Detail 01/03/19 19:55: Lactic Acid 4.2 H* 01/03/19 22:45: Hgb 9.2 L, Hct 27.9 L 01/03/19 22:45: Lactic Acid Cancelled 01/03/19 22:45: Lactic Acid 2.5 H 01/04/19 03:15: Hgb 9.7 L, Hct 29.6 L 01/04/19 03:15: Sodium 141, Potassium 4.4, Chloride 112 H, Carbon Dioxide 23.0, Anion Gap 6, BUN 10, Creatinine 0.79, Estim Creat Clear Calc 98.61, Est GFR (MDRD) Af Amer 129, Est GFR (MDRD) Non-Af 107, BUN/Creatinine Ratio 12.6, Glucose 110 H, Calcium 7.3 L 01/04/19 03:15: Total Bilirubin 0.70, Direct Bilirubin 0.14, AST 12 L, ALT 20, Alkaline Phosphatase 60, Total Protein 5.3 L, Albumin 2.6 L, Globulin 2.7 01/04/19 06:55: PT 13.7, INR 1.1 01/04/19 08:05: WBC 7.5, RBC 3.32 L, Hgb 10.7 L, Hct 32.2 L, MCV 97.0 H, MCH 32.2 H, MCHC 33.2, RDW Std Deviation 51.2 H, RDW Coeff of Breanne 14.5, Plt Count 202, MPV 9.3, Immature Gran % (Auto) 1.900 H, Neut % (Auto) 69.4, Lymph % (Auto) 22.0, [place] % (Auto) 5.5, Eos % (Auto) 0.8, Baso % (Auto) 0.4, Absolute Neuts (auto) 5.2, Absolute Lymphs (auto) 1.64, Nucleated RBC % 0 Current Medications Acetaminophen (Tylenol) 650 mg PO Q6H PRN PRN PRN Reason: Non-cardiac pain (mod-severe) Hydrocodone Bitart/Acetaminophen ([place] 5mg-325mg) 1 - 2 tablet PO Q4H PRN PRN PRN Reason: Pain Score 4-10/10 Albuterol Sulfate (Ventolin Aerosols) 2.5 mg INHALATION Q2H PRN PRN PRN Reason: dyspnea, wheezing Dextrose (D50w Syringe) 0 gm IV X1 PRN; Protocol PRN Reason: Hypoglycemia Folic Acid (Folic Acid) 1 mg PO DAILY@0800 [facility] Stop: 01/06/19 08:01 Last Admin: 01/04/19 08:15 Dose: 1 mg Documented by: Glucagon () 1 mg IM .X1 PRN PRN Reason: Hypoglycemia Hydralazine HCl (Apresoline Iv) 10 mg IV Q4H PRN PRN PRN Reason: SBP > 160 Pantoprazole Sodium 40 mg/ (Sodium Chloride) 110 mls @ 330 mls/hr IV Q12 [facility] Last Infusion: 01/04/19 10:10 Dose: Infused Documented by: Sodium Chloride () 500 mls @ 15 mls/hr IV PRN PRN PRN Reason: Blood Transfusion Last Infusion: 01/04/19 09:37 Dose: Infused Documented by: Sodium Chloride () 250 mls @ 15 mls/hr IV .[id number] PRN PRN Reason: Saline Flush Last Infusion: 01/04/19 10:10 Dose: 15 mls/hr Documented by: Lorazepam (Ativan) 2 mg PO Q2H PRN PRN; Protocol PRN Reason: CIWA score > 8 but <15 Lorazepam (Ativan) 2 mg PO UD PRN; Protocol PRN Reason: CIWA score >/=15. Lorazepam (Ativan) 2 mg IV Q2H PRN PRN; Protocol PRN Reason: CIWA score > 8 but <15 Lorazepam (Ativan) 2 mg IV UD PRN; Protocol PRN Reason: CIWA score >/=15. Multivitamins/Minerals (Multivitamin With Minerals) [facility] Last Admin: 01/04/19 08:15 Dose: 1 tablet Documented by: Ondansetron HCl (Zofran) 4 mg IV Q8H PRN PRN PRN Reason: NAUSEA/VOMITING Sodium Chloride () 10 - 40 ml IV UD PRN PRN Reason: SALINE FLUSH Last Admin: 01/04/19 09:50 Dose: 10 ml Documented by: Thiamine HCl (Vitamin B1) [facility] Stop: 01/06/19 17:01 Last Admin: 01/04/19 08:15 Dose: 100 mg Documented by: STROKE Vital Signs/Narrative: Vital Signs Temp Pulse Resp BP BP Pulse Ox 01/04/19 10:00 84 18 148/86 H 97 01/04/19 09:00 77 16 143/75 H 97 01/04/19 08:00 98.2 F 78 14 139/66 H 98 01/04/19 07:40 80 01/04/19 07:00 85 13 142/73 H 142/73 H 98 01/04/19 06:44 79 14 127/65 H 97 Medical Necessity - Tobacco Use Smoking Status: Current every day smoker - Patient smokes approximately 1/2 pack/day cigarette tobacco usage. Tobacco Use: Cigarettes Assessment/Plan All Active Problems Hemorrhagic shock (Acute) Rectal bleeding (Acute) Acute blood loss anemia (Acute) 1. Acute lower GI bleed BP was at its lowest, 98/52 on admission, which resolved with administration of IVF Hb was 10.7 on admission, and dropped mildly to 9.2; he was however transfused with 2 units of PRBCs on admisison o/a of hypotension and ongoing bleeding general surgery on board- since patient has stopped bleeding, plan per surgery, to hold off on emergent colonoscopy for now. If he remains stable, to have colonoscopy on outpatient basis on Tuesday Hb this morning is10.7 2. Hypertension: diovan was held on admission o/.a of hypotension. BP now 148/86. Will resume BP meds 3. Nicotine dependence: counselled to quit. 4. Alcohol abuse: States he drinks about 3-4 beers every day. On CIWA protocol. On multivitamin, thiamine and folic acid. 5. GERD: On PPI DVT prophylaxis: SCDs Code Visit Inpatient E&M: 44927 Subs Hosp L2
--- NOTE | 2019-01-04 11:20 | CASEMGMT ---
SW met w/pt in room, pt's girlfriend also present. SW spoke w/pt about prior level of function and anticipated discharge plan. PCP: Dr. Simmons Specialists: Pt was to see physician for blood in urine tomorrow, can't remember the name of the doctor. Girlfriend plans to cancel the appointment. Preferred Pharmacy: [facility] Insurance/Prescription benefit: [facility] LW/POA: POA form on paper chart, girlfriend Sarah Blankenship is listed as pt's Medical POA. LW provision is initialed in POA form LNOK: Lives with girlfriend, has brothers, sister, children in [facility] Prior level of function: Pt fully independent, lives home w/girlfriend. Pt drives, no assist for any ADL's. DME/HHC: Pt uses no DME, no history of home health care. Plan: Home Pt plans to return home at discharge, it is not anticipated pt will have any homegoing needs. SW did ask pt about alcohol consumption, as he reports to drink 3-4 beers per evening. Pt declined that this is a problem, as does his girlfriend. Pt declined any referrals for alcohol use at this time. JUAN Nobles
--- NOTE | 2019-01-04 13:49 | PCM.CONS.GEN ---
Reason for Consult Date of Consultation: 01/04/19 Reason for Consultation: hematochezia History of Present Illness: The patient is a 58 year old M Who presents with a one-day history of bright red blood per rectum and some slightly darker blood mixed within the stools. The patient noted onset of diarrhea which he describes as approximately 15 episodes initially with bright red blood mixed within the stools but eventually only blood. As the day progressed the patient had a near-syncopal event feeling lightheaded and dizzy but did not actually lose consciousness. he presented to [facility] with these complaints. He is found to have a hemoglobin of 10.7 a mildly elevated white count of 95 he was found to be mildly hypotensive. I was contacted and asked if I could perform endoscopy and I sent her be comfortable managing the patient. Due to concerns of possible significant anemia and hypovolemia, he was admitted to the ICU. He was hydrated and type and screen was obtained. The patient had no further rectal bleeding since admission to the hospital. He states he is feeling reasonably today.the patient has no complaints of abdominal pain currently. He states he is hungry and wishes he could eat area did The patient does have a history of significant alcohol abuse and tobacco use. Past Medical History Past Medical History (Chronic Problems): Chronic Problems ETOH abuse (Chronic) Tobacco use (Chronic) HTN (hypertension) (Chronic) GERD (gastroesophageal reflux disease) (Chronic) Allergies No Known Allergies Allergy (Verified 01/03/19 19:30) Home Medications: Ambulatory Orders Medication Instructions Recorded Acetaminophen [Tylenol Extra 1,000 mg PO DAILY PRN PRN 01/03/19 Strength] Valsartan [Diovan] 80 mg PO DAILY 01/03/19 Surgical History: - - Patient denies any prior surgical history. Psychiatric History: No pertinent psych hx Lives: Spouse/ Significant Other Smoking Status: Current every day smoker - Patient smokes approximately 1/2 pack/day cigarette tobacco usage. Tobacco Use: Cigarettes Alcohol: Heavy - Patient notes 3-4 normal size beers daily. Drugs: None - *Family History Maternal History Items: - - Patient notes a maternal family history of heart disease and diabetes. Paternal History Items: - - Patient notes a paternal family history of heart disease and diabetes. Review of Systems Constitutional: Reports: Anorexia, Malaise, Weakness, Fatigue HEENT: Denies: Head Aches, Sinus Congestion, Sinus Drainage Cardiovascular: Reports: Light Headedness, Syncope. Denies: Chest Pain, Palpitations Respiratory: Denies: Cough, Shortness of breath at rest, Sputum production Gastrointestinal: Reports: Diarrhea. Denies: Abdominal Pain, Nausea, Vomiting Genitourinary: Denies: Dysuria Musculoskeletal: Denies: Joint Pain, Joint Tenderness Skin: Denies: Rash, Wounds Neurological: Denies: Numbness, Tingling, Focal weakness Psychiatric: Denies: Anxiety, Depression, Homicidal Ideations, Suicidal Ideations Hematologic/ Lymphatic: Denies: Easy Bruising, Easy Bleeding Patient Problems: Active and Suspected Problems Hemorrhagic shock (Acute) Rectal bleeding (Acute) Acute blood loss anemia (Acute) - Physical Exam Vitals/I&O's: Vital Signs Temp Pulse Resp BP Pulse Ox 98.0 F 79 14 129/63 H 96 01/04/19 12:00 01/04/19 12:00 01/04/19 12:00 01/04/19 12:00 01/04/19 12:00 Oxygen Delivery Method Room Air Weight: 81 kg Body Mass Index (BMI) 26.9 Intake and Output for Last 24 Hours 01/02/19 01/03/19 01/04/19 23:59 23:59 23:59 Intake Total 2576 / 2585.38 2275.50 / 2275.50 Output Total 400 / 400 1675 / 1675 Balance 2176 / 2185.38 600.50 / 600.50 General: Alert, Oriented x3, Cooperative Lungs: Rhonchi Cardiovascular: Regular rate, No murmurs Abdomen: Bowel Sounds Present, Soft, Non Tender Laboratory Results 01/03/19 19:32: WBC 15.0 H, RBC 3.23 L, Hgb 10.7 L, Hct 31.8 L, MCV 98.5 H, MCH 33.1 H, MCHC 33.6, RDW Std Deviation 46.4 H, RDW Coeff of Breanne 12.9, Plt Count 265, MPV 9.6, Immature Gran % (Auto) 1.500 H, Neut % (Auto) 67.0, Lymph % (Auto) 24.2, [place] % (Auto) 5.8, Eos % (Auto) 1.1, Baso % (Auto) 0.4, Absolute Neuts (auto) 10.1 H, Absolute Lymphs (auto) 3.63, Nucleated RBC % 0 01/03/19 19:32: Sodium 138, Potassium 3.4 L, Chloride 107, Carbon Dioxide 21.0, Anion Gap 10, BUN 11, Creatinine 0.93, Estim Creat Clear Calc 83.76, Est GFR (MDRD) Af Amer 107, Est GFR (MDRD) Non-Af 89, BUN/Creatinine Ratio 11.8, Glucose 140 H, Calcium 7.9 L 01/03/19 19:32: Blood Type A POSITIVE, Antibody Screen NEGATIVE 01/03/19 19:32: Phosphorus 2.5, Magnesium 2.0 01/03/19 19:32: Crossmatch See Detail 01/03/19 19:55: Lactic Acid 4.2 H* 01/03/19 22:45: Hgb 9.2 L, Hct 27.9 L 01/03/19 22:45: Lactic Acid Cancelled 01/03/19 22:45: Lactic Acid 2.5 H 01/04/19 03:15: Hgb 9.7 L, Hct 29.6 L 01/04/19 03:15: Sodium 141, Potassium 4.4, Chloride 112 H, Carbon Dioxide 23.0, Anion Gap 6, BUN 10, Creatinine 0.79, Estim Creat Clear Calc 98.61, Est GFR (MDRD) Af Amer 129, Est GFR (MDRD) Non-Af 107, BUN/Creatinine Ratio 12.6, Glucose 110 H, Calcium 7.3 L 01/04/19 03:15: Total Bilirubin 0.70, Direct Bilirubin 0.14, AST 12 L, ALT 20, Alkaline Phosphatase 60, Total Protein 5.3 L, Albumin 2.6 L, Globulin 2.7 01/04/19 06:55: PT 13.7, INR 1.1 01/04/19 08:05: WBC 7.5, RBC 3.32 L, Hgb 10.7 L, Hct 32.2 L, MCV 97.0 H, MCH 32.2 H, MCHC 33.2, RDW Std Deviation 51.2 H, RDW Coeff of Breanne 14.5, Plt Count 202, MPV 9.3, Immature Gran % (Auto) 1.900 H, Neut % (Auto) 69.4, Lymph % (Auto) 22.0, [place] % (Auto) 5.5, Eos % (Auto) 0.8, Baso % (Auto) 0.4, Absolute Neuts (auto) 5.2, Absolute Lymphs (auto) 1.64, Nucleated RBC % 0 Current Medications Acetaminophen (Tylenol) 650 mg PO Q6H PRN PRN PRN Reason: Non-cardiac pain (mod-severe) Hydrocodone Bitart/Acetaminophen ([place] 5mg-325mg) 1 - 2 tablet PO Q4H PRN PRN PRN Reason: Pain Score 4-10/10 Albuterol Sulfate (Ventolin Aerosols) 2.5 mg INHALATION Q2H PRN PRN PRN Reason: dyspnea, wheezing Dextrose (D50w Syringe) 0 gm IV X1 PRN; Protocol PRN Reason: Hypoglycemia Folic Acid (Folic Acid) 1 mg PO DAILY@0800 [facility] Stop: 01/06/19 08:01 Last Admin: 01/04/19 08:15 Dose: 1 mg Documented by: Glucagon () 1 mg IM .X1 PRN PRN Reason: Hypoglycemia Hydralazine HCl (Apresoline Iv) 10 mg IV Q4H PRN PRN PRN Reason: SBP > 160 Pantoprazole Sodium 40 mg/ (Sodium Chloride) 110 mls @ 330 mls/hr IV Q12 GRANT Last Infusion: 01/04/19 10:10 Dose: Infused Documented by: Sodium Chloride () 500 mls @ 15 mls/hr IV PRN PRN PRN Reason: Blood Transfusion Last Infusion: 01/04/19 09:37 Dose: Infused Documented by: Sodium Chloride () 250 mls @ 15 mls/hr IV .[id number] PRN PRN Reason: Saline Flush Last Infusion: 01/04/19 10:10 Dose: 15 mls/hr Documented by: Lorazepam (Ativan) 2 mg PO Q2H PRN PRN; Protocol PRN Reason: CIWA score > 8 but <15 Lorazepam (Ativan) 2 mg PO UD PRN; Protocol PRN Reason: CIWA score >/=15. Lorazepam (Ativan) 2 mg IV Q2H PRN PRN; Protocol PRN Reason: CIWA score > 8 but <15 Lorazepam (Ativan) 2 mg IV UD PRN; Protocol PRN Reason: CIWA score >/=15. Multivitamins/Minerals ([facility]ivitamin With Minerals) [facility] Last Admin: 01/04/19 08:15 Dose: 1 tablet Documented by: Ondansetron HCl (Zofran) 4 mg IV Q8H PRN PRN PRN Reason: NAUSEA/VOMITING Sodium Chloride () 10 - 40 ml IV UD PRN PRN Reason: SALINE FLUSH Last Admin: 01/04/19 09:50 Dose: 10 ml Documented by: Thiamine HCl (Vitamin B1) [facility] Stop: 01/06/19 17:01 Last Admin: 01/04/19 08:15 Dose: 100 mg Documented by: Assessment/Plan All Active Problems Hemorrhagic shock (Acute) Rectal bleeding (Acute) Acute blood loss anemia (Acute) hematochezia, history of alcohol and tobacco use I would plan to perform upper and lower endoscopy. As the patient's hemoglobin has remained stable and this is not an emergency. I would recommend upper and lower endoscopy to be performed some mild electively. Unfortunately, the endoscopy schedules follow-up Tuesday for elective procedures. The patient did not wish to stay in until Tuesday for his procedure so as long as he has no further bleeding I be comfortable with him being discharged to home with plans to bowel prep on Tuesday and he is artery scheduled for upper and lower endoscopy Tuesday afternoon. The patient stands the risks, benefits, complications and possible Dietz's endoscopy consents to the planned procedures.
[2019-01-05] VITALS: PULSE 78
[2019-01-05 03:43] VITALS: PULSE 67
[2019-01-05] MEDS: 0.9% Saline Lock 10 ML Syringe IV (03:56)
[2019-01-05 03:59] VITALS: BP 165/99; PULSE 82; RESP 15; TEMP 36.2; O2SAT 98
[2019-01-05 04:15] LABS: Absolute Lymphocyte Count 1.98 X10^3/uL (0.83-4.51); Absolute Neutrophil Count 4.2 X10^3/uL (2.0-7.7); Basophil# 0.03 X10^3/uL; Basophil% 0.4 % (0-1); Eosinophil# 0.14 X10^3/uL; Eosinophils% 2.1 % (0-5); Hematocrit 30.2 % (40-54); Lymphocyte # 1.98 X10^3/ul (4.0); Lymphocyte % 29.1 % (19-41); Mean Corp Hgb Conc 33.1 g/dL (32-36); Mean Corpuscular Hgb 32.1 pg (27.0-32.0); Mean Corpuscular Volume 96.8 fL (80-94); Mean Platelet Vol. 9.8 fl (6.2-12.0); Monocyte# 0.43 X10^3/uL; Monocyte% 6.3 % (0-10); NRBC Flagged by Analyzer 0 % (0-5); Neutrophil # 4.15 X10^3/uL (2.7-7.7); Neutrophil % 61.1 % (47-70); Platelet Count 196 K/mm3 (150-450); RBC Distribution Width CV 14.8 % (11.6-14.6); RBC Distribution Width SD 51.8 fl (35.1-43.9); Red Blood Count 3.12 M/mm3 (4.6-6.2); White Blood Count 6.8 K/mm3 (4.4-11.0)
[2019-01-05 04:30] LABS: Anion Gap 6 (5-15); BUN 7 mg/dL (7-18); BUN/Creat Ratio 8.1 RATIO (10-20); Calcium,Total 7.9 mg/dL (8.5-10.1); Chloride 112 mmol/L (98-107); Creatinine, Serum 0.86 mg/dL (0.70-1.30); EST Glomerular Filtration Rate 96 mL/min (>60); Est Glom Filt Rate - Afr Amer 117 mL/min (>60); Estimated Creatinine Clearance 90.58 ml/min; Glucose 104 mg/dL (74-106); Potassium 3.9 mmol/L (3.5-5.1); Sodium Level 144 mmol/L (136-145)
--- NOTE | 2019-01-05 06:26 | PCM.PN.SRG ---
Patient Problems: Active and Suspected Problems Hemorrhagic shock (Acute) Rectal bleeding (Acute) Acute blood loss anemia (Acute) Subjective: 1 bloody stool yesterday afternoon, brown stool overnight. Would like to go home - Physical Exam Vitals/I&O's: Vital Signs Temp Pulse Resp BP Pulse Ox 97.2 F L 82 15 165/99 H 98 01/05/19 03:59 01/05/19 03:59 01/05/19 03:59 01/05/19 03:59 01/05/19 03:59 Oxygen Delivery Method Room Air Weight: 81.9 kg Body Mass Index (BMI) 26.9 Intake and Output for Last 24 Hours 01/03/19 01/04/19 01/05/19 23:59 23:59 23:59 Intake Total 2576 / 2585.38 2756.25 / 2816.25 120 / 120 Output Total 400 / 400 1925 / 2225 975 / 975 Balance 2176 / 2185.38 831.25 / 591.25 -855 / -855 General: Alert, Oriented x3, Cooperative Abdomen: - - the 9 Microbiology Past 72 Hours 01/04/19 14:50 Stool Enteric Bacteriology - Preliminary 01/04/19 14:50 Stool C. difficile DNA Amplification - Final Laboratory Results 01/03/19 19:32: Crossmatch See Detail 01/04/19 03:15: Total Bilirubin 0.70, Direct Bilirubin 0.14, AST 12 L, ALT 20, Alkaline Phosphatase 60, Total Protein 5.3 L, Albumin 2.6 L, Globulin 2.7 01/04/19 06:55: PT 13.7, INR 1.1 01/04/19 08:05: WBC 7.5, RBC 3.32 L, Hgb 10.7 L, Hct 32.2 L, MCV 97.0 H, MCH 32.2 H, MCHC 33.2, RDW Std Deviation 51.2 H, RDW Coeff of Breanne 14.5, Plt Count 202, MPV 9.3, Immature Gran % (Auto) 1.900 H, Neut % (Auto) 69.4, Lymph % (Auto) 22.0, [place] % (Auto) 5.5, Eos % (Auto) 0.8, Baso % (Auto) 0.4, Absolute Neuts (auto) 5.2, Absolute Lymphs (auto) 1.64, Nucleated RBC % 0 01/05/19 03:58: WBC 6.8, RBC 3.12 L, Hgb 10.0 L, Hct 30.2 L, MCV 96.8 H, MCH 32.1 H, MCHC 33.1, RDW Std Deviation 51.8 H, RDW Coeff of Breanne 14.8 H, Plt Count 196, MPV 9.8, Immature Gran % (Auto) 1.000 H, Neut % (Auto) 61.1, Lymph % (Auto) 29.1, [place] % (Auto) 6.3, Eos % (Auto) 2.1, Baso % (Auto) 0.4, Absolute Neuts (auto) 4.2, Absolute Lymphs (auto) 1.98, Nucleated RBC % 0 01/05/19 03:58: Sodium 144, Potassium 3.9, Chloride 112 H, Carbon Dioxide 26.0, Anion Gap 6, BUN 7, Creatinine 0.86, Estim Creat Clear Calc 90.58, Est GFR (MDRD) Af Amer 117, Est GFR (MDRD) Non-Af 96, BUN/Creatinine Ratio 8.1 L, Glucose 104, Calcium 7.9 L Current Medications Acetaminophen (Tylenol) 650 mg PO Q6H PRN PRN PRN Reason: Non-cardiac pain (mod-severe) Hydrocodone Bitart/Acetaminophen ([place] 5mg-325mg) 1 - 2 tablet PO Q4H PRN PRN PRN Reason: Pain Score 4-10/10 Albuterol Sulfate (Ventolin Aerosols) 2.5 mg INHALATION Q2H PRN PRN PRN Reason: dyspnea, wheezing Dextrose (D50w Syringe) 0 gm IV X1 PRN; Protocol PRN Reason: Hypoglycemia Folic Acid (Folic Acid) 1 mg PO DAILY@0800 [facility] Stop: 01/06/19 08:01 Last Admin: 01/04/19 08:15 Dose: 1 mg Documented by: Glucagon () 1 mg IM .X1 PRN PRN Reason: Hypoglycemia Hydralazine HCl (Apresoline Iv) 10 mg IV Q4H PRN PRN PRN Reason: SBP > 160 Pantoprazole Sodium 40 mg/ (Sodium Chloride) 110 mls @ 330 mls/hr IV Q12 [facility] Last Infusion: 01/04/19 22:14 Dose: Infused Documented by: Sodium Chloride () 500 mls @ 15 mls/hr IV PRN PRN PRN Reason: Blood Transfusion Last Infusion: 01/04/19 09:37 Dose: Infused Documented by: Sodium Chloride () 250 mls @ 15 mls/hr IV .[id number] PRN PRN Reason: Saline Flush Last Infusion: 01/04/19 23:51 Dose: 0 mls/hr Documented by: Lorazepam (Ativan) 2 mg PO Q2H PRN PRN; Protocol PRN Reason: CIWA score > 8 but <15 Lorazepam (Ativan) 2 mg PO UD PRN; Protocol PRN Reason: CIWA score >/=15. Lorazepam (Ativan) 2 mg IV Q2H PRN PRN; Protocol PRN Reason: CIWA score > 8 but <15 Lorazepam (Ativan) 2 mg IV UD PRN; Protocol PRN Reason: CIWA score >/=15. Multivitamins/Minerals ([facility]amin [facility] Minerals) [facility] Last Admin: 01/04/19 08:15 Dose: 1 tablet Documented by: Ondansetron HCl (Zofran) 4 mg IV Q8H PRN PRN PRN Reason: NAUSEA/VOMITING Sodium Chloride () 10 - 40 ml IV UD PRN PRN Reason: SALINE FLUSH Last Admin: 01/05/19 03:56 Dose: 20 ml Documented by: Thiamine HCl (Vitamin B1) [facility] Stop: 01/06/19 17:01 Last Admin: 01/04/19 17:12 Dose: 100 mg Documented by: Medical Necessity - Tobacco Use Smoking Status: Current every day smoker - Patient smokes approximately 1/2 pack/day cigarette tobacco usage. Tobacco Use: Cigarettes Assessment/Plan All Active Problems Hemorrhagic shock (Acute) Rectal bleeding (Acute) Acute blood loss anemia (Acute) hematochezia, history of alcohol and tobacco use I would plan to perform upper and lower endoscopy. As I am comfortable with him being discharged to home with plans to bowel prep on Tuesday and he is currently scheduled for upper and lower endoscopy Tuesday afternoon. The patient stands the risks, benefits, complications and possible Dietz's endoscopy consents to the planned procedures.
[2019-01-05 07:00] VITALS: PULSE 67
--- NOTE | 2019-01-05 07:30 | PCM.PN.INT ---
Subjective: The patient was seen and examined at the bedside this morning. Events from the last 24 hours have been reviewed. The patient is currently afebrile, hemodynamically stable and maintaining appropriate oxygen saturations on room air. The patient has had apparently 2 bowel movements for the last 24 hours, neither of which were bloody in nature. He has tolerated a diet without issue. General surgery is planning for outpatient endoscopic evaluation Tuesday. Hemoglobin is stable this morning at 10.0 g/dL. Objective: The patient's most recent lab work, culture data and imaging studies have all been personally reviewed. General: Alert, Oriented x3, Cooperative, No apparent distress HEENT: Atraumatic, PERRLA, Normocephalic Oral: No Gingival or Mucosal Lesions/ Ulcerations Neck: Supple, No Nodes, Trachea Midline Lungs: No rhonchi, No wheeze, No rales, Diminished Cardiovascular: Regular rate, Regular Rhythm, Normal S1, Normal S2 Abdomen: Bowel Sounds Present, Soft, Non Tender Extremities: No clubbing, No cyanosis, No edema Skin: No breakdown Musculoskeletal: No Tenderness to Palpation of Joints or Extremities, No Muscle Wasting Lymphatic: No Cervical, Supraclavicular, or Inguinal Adenopathy Neurological: Cranial nerves II-XII grossly intact, Neuro grossly intact Psych/Mental Status: Alert and oriented to time, place, person, mood and affect Vital Signs Temp Pulse Resp BP Pulse Ox 97.2 F L 82 15 165/99 H 98 01/05/19 03:59 01/05/19 03:59 01/05/19 03:59 01/05/19 03:59 01/05/19 03:59 Oxygen Delivery Method Room Air Weight: 180 lb 8.937 oz Body Mass Index (BMI) 26.9 Intake and Output for Last 24 Hours 01/03/19 01/04/19 01/05/19 23:59 23:59 23:59 Intake Total 2576 / 2585.38 2756.25 / 2816.25 120 / 120 Output Total 400 / 400 1925 / 2225 975 / 975 Balance 2176 / 2185.38 831.25 / 591.25 -855 / -855 Labs (Last 48 Hours) 01/03/19 01/03/19 01/03/19 19:32 19:32 19:32 WBC 15.0 H RBC 3.23 L Hgb 10.7 L Hct 31.8 L MCV 98.5 H MCH 33.1 H MCHC 33.6 RDW Std Deviation 46.4 H RDW Coeff of Breanne 12.9 Plt Count 265 MPV 9.6 Immature Gran % (Auto) 1.500 H Neut % (Auto) 67.0 Lymph % (Auto) 24.2 [place] % (Auto) 5.8 Eos % (Auto) 1.1 Baso % (Auto) 0.4 Absolute Neuts (auto) 10.1 H Absolute Lymphs (auto) 3.63 Nucleated RBC % 0 PT INR Sodium 138 Potassium 3.4 L Chloride 107 Carbon Dioxide 21.0 Anion Gap 10 BUN 11 Creatinine 0.93 Estim Creat Clear Calc 83.76 Est GFR (MDRD) Af Amer 107 Est GFR (MDRD) Non-Af 89 BUN/Creatinine Ratio 11.8 Glucose 140 H Lactic Acid Calcium 7.9 L Phosphorus Magnesium Total Bilirubin Direct Bilirubin AST ALT Alkaline Phosphatase Total Protein Albumin Globulin Blood Type A POSITIVE Antibody Screen NEGATIVE Crossmatch 01/03/19 01/03/19 01/03/19 19:32 19:32 19:55 WBC RBC Hgb Hct MCV MCH MCHC RDW Std Deviation RDW Coeff of Breanne Plt Count MPV Immature Gran % (Auto) Neut % (Auto) Lymph % (Auto) [place] % (Auto) Eos % (Auto) Baso % (Auto) Absolute Neuts (auto) Absolute Lymphs (auto) Nucleated RBC % PT INR Sodium Potassium Chloride Carbon Dioxide Anion Gap BUN Creatinine Estim Creat Clear Calc Est GFR (MDRD) Af Amer Est GFR (MDRD) Non-Af BUN/Creatinine Ratio Glucose Lactic Acid 4.2 H* Calcium Phosphorus 2.5 Magnesium 2.0 Total Bilirubin Direct Bilirubin AST ALT Alkaline Phosphatase Total Protein Albumin Globulin Blood Type Antibody Screen Crossmatch See Detail 01/03/19 01/03/19 01/03/19 22:45 22:45 22:45 WBC RBC Hgb 9.2 L Hct 27.9 L MCV MCH MCHC RDW Std Deviation RDW Coeff of Breanne Plt Count MPV Immature Gran % (Auto) Neut % (Auto) Lymph % (Auto) [place] % (Auto) Eos % (Auto) Baso % (Auto) Absolute Neuts (auto) Absolute Lymphs (auto) Nucleated RBC % PT INR Sodium Potassium Chloride Carbon Dioxide Anion Gap BUN Creatinine Estim Creat Clear Calc Est GFR (MDRD) Af Amer Est GFR (MDRD) Non-Af BUN/Creatinine Ratio Glucose Lactic Acid Cancelled 2.5 H Calcium Phosphorus Magnesium Total Bilirubin Direct Bilirubin AST ALT Alkaline Phosphatase Total Protein Albumin Globulin Blood Type Antibody Screen Crossmatch 01/04/19 01/04/19 01/04/19 03:15 03:15 03:15 WBC RBC Hgb 9.7 L Hct 29.6 L MCV MCH MCHC RDW Std Deviation RDW Coeff of Breanne Plt Count MPV Immature Gran % (Auto) Neut % (Auto) Lymph % (Auto) [place] % (Auto) Eos % (Auto) Baso % (Auto) Absolute Neuts (auto) Absolute Lymphs (auto) Nucleated RBC % PT INR Sodium 141 Potassium 4.4 Chloride 112 H Carbon Dioxide 23.0 Anion Gap 6 BUN 10 Creatinine 0.79 Estim Creat Clear Calc 98.61 Est GFR (MDRD) Af Amer 129 Est GFR (MDRD) Non-Af 107 BUN/Creatinine Ratio 12.6 Glucose 110 H Lactic Acid Calcium 7.3 L Phosphorus Magnesium Total Bilirubin 0.70 Direct Bilirubin 0.14 AST 12 L ALT 20 Alkaline Phosphatase 60 Total Protein 5.3 L Albumin 2.6 L Globulin 2.7 Blood Type Antibody Screen Crossmatch 01/04/19 01/04/19 01/05/19 06:55 08:05 03:58 WBC 7.5 6.8 RBC 3.32 L 3.12 L Hgb 10.7 L 10.0 L Hct 32.2 L 30.2 L MCV 97.0 H 96.8 H MCH 32.2 H 32.1 H MCHC 33.2 33.1 RDW Std Deviation 51.2 H 51.8 H RDW Coeff of Breanne 14.5 14.8 H Plt Count 202 196 MPV 9.3 9.8 Immature Gran % (Auto) 1.900 H 1.000 H Neut % (Auto) 69.4 61.1 Lymph % (Auto) 22.0 29.1 [place] % (Auto) 5.5 6.3 Eos % (Auto) 0.8 2.1 Baso % (Auto) 0.4 0.4 Absolute Neuts (auto) 5.2 4.2 Absolute Lymphs (auto) 1.64 1.98 Nucleated RBC % 0 0 PT 13.7 INR 1.1 Sodium Potassium Chloride Carbon Dioxide Anion Gap BUN Creatinine Estim Creat Clear Calc Est GFR (MDRD) Af Amer Est GFR (MDRD) Non-Af BUN/Creatinine Ratio Glucose Lactic Acid Calcium Phosphorus Magnesium Total Bilirubin Direct Bilirubin AST ALT Alkaline Phosphatase Total Protein Albumin Globulin Blood Type Antibody Screen Crossmatch 01/05/19 03:58 WBC RBC Hgb Hct MCV MCH MCHC RDW Std Deviation RDW Coeff of Breanne Plt Count MPV Immature Gran % (Auto) Neut % (Auto) Lymph % (Auto) [place] % (Auto) Eos % (Auto) Baso % (Auto) Absolute Neuts (auto) Absolute Lymphs (auto) Nucleated RBC % PT INR Sodium 144 Potassium 3.9 Chloride 112 H Carbon Dioxide 26.0 Anion Gap 6 BUN 7 Creatinine 0.86 Estim Creat Clear Calc 90.58 Est GFR (MDRD) Af Amer 117 Est GFR (MDRD) Non-Af 96 BUN/Creatinine Ratio 8.1 L Glucose 104 Lactic Acid Calcium 7.9 L Phosphorus Magnesium Total Bilirubin Direct Bilirubin AST ALT Alkaline Phosphatase Total Protein Albumin Globulin Blood Type Antibody Screen Crossmatch Microbiology 01/04/19 14:50 Stool Enteric Bacteriology - Final 01/04/19 14:50 Stool C. difficile DNA Amplification - Final Medical Necessity - Tobacco Use Smoking Status: Current every day smoker - Patient smokes approximately 1/2 pack/day cigarette tobacco usage. Tobacco Use: Cigarettes Assessment/Plan All Active Problems Hemorrhagic shock (Acute) Rectal bleeding (Acute) Acute blood loss anemia (Acute) RECOMMENDATIONS: 1. No current indication for any additional blood products. 2. Outpatient follow-up with general surgery Tuesday with planned endoscopy. IMPRESSIONS: 1. Hematochezia/anemia The patient presented with bright red blood per rectum and a hemoglobin which reached a hamlet of 9.2 g/dL. Although the patient was initially reported to be hypotensive during EMS transportation, he has remained hemodynamically stable while in the ICU. The patient did receive supplemental IV fluids and has been transfused 2 units of packed red blood cells. He has not experienced any further GI blood loss in his hemoglobin is stable. The patient will be scheduled for outpatient upper endoscopy this upcoming Tuesday with general surgery. 2. Continuous tobacco dependency Smoking cessation counseling was provided. 3. Alcohol dependency The patient denies ever having experienced any withdrawal symptoms. CIWA protocol has been initiated. 4. Hypertension Complicates care, management, recovery and prognosis. Home antihypertensives are currently on hold. This note was generated with Software Artistryation software. It may contain incorrect words, spelling, and punctuation that were not noted in checking the note before signing. Code Visit Inpatient E&M: 34302 Subs Hosp L2
[2019-01-05] MEDS: Thiamine Hydrochloride 100 MG Tablet PO (08:49)
[2019-01-05] MEDS: Folic Acid 1 MG Tablet PO (08:49)
[2019-01-05] MEDS: Multivitamins,Ther W-Minerals Tablet 1 TABLET PO (08:49)
[2019-01-05 09:00] VITALS: BP 152/64; PULSE 75; RESP 15; TEMP 36.6; O2SAT 98
--- NOTE | 2019-01-05 09:23 | DCINST_ITS ---
- Discharge Diagnoses Current Active Problems: Current Active and Chronic Problems Hemorrhagic shock (Acute) Rectal bleeding (Acute) Acute blood loss anemia (Acute) ETOH abuse (Chronic) Tobacco use (Chronic) HTN (hypertension) (Chronic) GERD (gastroesophageal reflux disease) (Chronic) You will use the following diet at home:: Cardiac Your food should be the consistency of: Regular Your liquids should be the consistency of: Regular/Thin Discharge Activity: Return to Normal Activity Weight Bearing Status: Weight bearing as tolerated Call your doctor if you observe: Fever of 101 or Higher, Shortness of breath, Dizziness, - - rectal bleeding Instructions: When You Have Gastrointestinal (GI) Bleeding Allergies/Adverse Reactions: Allergies No Known Allergies Allergy (Verified 01/03/19 19:30) Medications to take at Discharge Acetaminophen [Tylenol Extra Strength] 1,000 mg PO DAILY PRN PRN 01/03/19 Valsartan [Diovan] 80 mg PO DAILY 01/03/19 [id number]/Sod Sulf,Bicarb,Cl/KCl [Golytely Solution] 4,000 ml PO UD #1 soln.recon 01/05/19 The following prescriptions were given: [id number]/Sod Sulf,Bicarb,Cl/KCl [Golytely Solution] 4,000 ml PO UD #1 soln.recon Transmission Status: Pending to [facility]/pharmacy #[id number] Primary Care Physician: Ronak Simmons MD [Primary Care Provider] - Please follow up with your Primary Care Physician in: one week Test Results: Test results from this visit will be discussed in further detail at your follow- up appointment, if applicable. Please Follow Up With: Bola Camacho MD When: Tuesday11/08/18 for outpatient EGD and colonoscopy Proposed Discharge Date: 01/05/19
--- NOTE | 2019-01-05 10:11 | PCM.DC.SUM ---
Discharge Date and Diagnosis Date of Admission: 01/03/19 Date of Discharge: 01/05/19 - Primary Discharge Diagnosis Active and Suspected Problems Rectal bleeding (Acute) Acute blood loss anemia (Acute) - Secondary Discharge Diagnosis Chronic Problems ETOH abuse (Chronic) Tobacco use (Chronic) HTN (hypertension) (Chronic) GERD (gastroesophageal reflux disease) (Chronic) Hospital Course and Treatment general surgery- Dr Will Operations: None Procedures: None Summary of Care Provided: The patient is a 58 year old M with a past medical history as listed who was admitted through the ED on 01/03/2019 with a complaint of rectal bleeding with associated diarrhea. He had about 15 bowel movements on the day of admission and said he had bright red blood per rectum. While being transported by the ED, he became hypotensive and passed out. He admitted to using NSAIDs on a regular basis. He denied any abdominal pain, nausea vomiting. After fluid hydration, he was noted to be stable in the ED hemodynamically. Labs done showed hemoglobin of 10.7 with white cell count of 15,000 and potassium 3.4. Lactic acid was 4.2. He was hydrated with IV fluids and general surgery was consulted. Patient was transfused with 2 units of packed red blood cells on account of continued bleeding and admitted to the ICU to be managed for acute lower GI bleed. Patient remained stable and bleeding gradually stopped. General surgery saw patient and decided to do an interval colonoscopy as patient was stable at the time of review and bleeding had stopped. Patient remained stable and was discharged home on 01/05/2019. Was given a prescription for GoLYTELY to start taking it on 01/07/2019 in preparation for colonoscopy on 01/08/2019 on outpatient basis by Dr. Will. Patient seen and examined prior to discharge. He felt very well and had no complaints. Review of systems otherwise negative. Labs and vitals reviewed. Home medications reviewed and reconciled. Of note aspirin was discontinued permanently. o/e: Vital Signs Height 5 ft 8 in Weight: 180 lb 8.937 oz Weight in Pounds 180.6 lbs Pulse Ox 98 Temperature 97.8 F Pulse Rate 75 Respiratory Rate 15 Blood Pressure [BP] 148/86 Blood Pressure 152/64 Blood Pressure Position [BP] Semi-Fowlers Blood Pressure Position Semi-Fowlers General: Alert, Oriented x3, Cooperative, No apparent distress HEENT: Atraumatic, PERRLA, EOMI, Normocephalic Oral: Moist Mucosa Neck: Supple, No JVD, Negative Carotid Bruits Lungs: Clear to auscultation, Normal air movement, No rhonchi, No wheeze, No rales Cardiovascular: Regular rate, Regular Rhythm, Normal S1, Normal S2, No murmurs Abdomen: Bowel Sounds Present, Soft, Non Tender, Non-Distended, No Hepato-splenomegaly Extremities: No clubbing, No cyanosis, No edema, Capillary Refill Less than 3 Seconds Skin: No rashes, No breakdown Musculoskeletal: No Tenderness to Palpation of Joints or Extremities Lymphatic: No Cervical, Supraclavicular, or Inguinal Adenopathy Neurological: Cranial nerves II-XII grossly intact Psych/Mental Status: Normal Affect, Appropriate, Alert and oriented to time, place, person, mood and affect Plan as above. - Physical Exam Vitals/I&O's: Vital Signs Temp Pulse Resp BP Pulse Ox 97.2 F L 67 15 165/99 H 98 01/05/19 03:59 01/05/19 07:00 01/05/19 03:59 01/05/19 03:59 01/05/19 03:59 Oxygen Delivery Method Room Air Weight: 180 lb 8.937 oz Body Mass Index (BMI) 26.9 Intake and Output for Last 24 Hours 01/03/19 01/04/19 01/05/19 23:59 23:59 23:59 Intake Total 2576 / 2585.38 2756.25 / 2816.25 120 / 120 Output Total 400 / 400 1925 / 2225 975 / 975 Balance 2176 / 2185.38 831.25 / 591.25 -855 / -855 Microbiology Past 72 Hours 01/04/19 14:50 Stool Enteric Bacteriology - Final 01/04/19 14:50 Stool C. difficile DNA Amplification - Final Laboratory Results 01/05/19 03:58: WBC 6.8, RBC 3.12 L, Hgb 10.0 L, Hct 30.2 L, MCV 96.8 H, MCH 32.1 H, MCHC 33.1, RDW Std Deviation 51.8 H, RDW Coeff of Breanne 14.8 H, Plt Count 196, MPV 9.8, Immature Gran % (Auto) 1.000 H, Neut % (Auto) 61.1, Lymph % (Auto) 29.1, [place] % (Auto) 6.3, Eos % (Auto) 2.1, Baso % (Auto) 0.4, Absolute Neuts (auto) 4.2, Absolute Lymphs (auto) 1.98, Nucleated RBC % 0 01/05/19 03:58: Sodium 144, Potassium 3.9, Chloride 112 H, Carbon Dioxide 26.0, Anion Gap 6, BUN 7, Creatinine 0.86, Estim Creat Clear Calc 90.58, Est GFR (MDRD) Af Amer 117, Est GFR (MDRD) Non-Af 96, BUN/Creatinine Ratio 8.1 L, Glucose 104, Calcium 7.9 L Current Medications Acetaminophen (Tylenol) 650 mg PO Q6H PRN PRN PRN Reason: Non-cardiac pain (mod-severe) Hydrocodone Bitart/Acetaminophen ([place] 5mg-325mg) 1 - 2 tablet PO Q4H PRN PRN PRN Reason: Pain Score 4-10/10 Albuterol Sulfate (Ventolin Aerosols) 2.5 mg INHALATION Q2H PRN PRN PRN Reason: dyspnea, wheezing Dextrose (D50w Syringe) 0 gm IV X1 PRN; Protocol PRN Reason: Hypoglycemia Folic Acid (Folic Acid) 1 mg PO DAILY@0800 [facility] Stop: 01/06/19 08:01 Last Admin: 01/05/19 08:49 Dose: 1 mg Documented by: Glucagon () 1 mg IM .X1 PRN PRN Reason: Hypoglycemia Hydralazine HCl (Apresoline Iv) 10 mg IV Q4H PRN PRN PRN Reason: SBP > 160 Pantoprazole Sodium 40 mg/ (Sodium Chloride) 110 mls @ 330 mls/hr IV Q12 GRANT Last Admin: 01/05/19 08:59 Dose: 330 mls/hr Documented by: Sodium Chloride () 500 mls @ 15 mls/hr IV PRN PRN PRN Reason: Blood Transfusion Last Infusion: 01/04/19 09:37 Dose: Infused Documented by: Sodium Chloride () 250 mls @ 15 mls/hr IV .[id number] PRN PRN Reason: Saline Flush Last Infusion: 01/04/19 23:51 Dose: 0 mls/hr Documented by: Lorazepam (Ativan) 2 mg PO Q2H PRN PRN; Protocol PRN Reason: CIWA score > 8 but <15 Lorazepam (Ativan) 2 mg PO UD PRN; Protocol PRN Reason: CIWA score >/=15. Lorazepam (Ativan) 2 mg IV Q2H PRN PRN; Protocol PRN Reason: CIWA score > 8 but <15 Lorazepam (Ativan) 2 mg IV UD PRN; Protocol PRN Reason: CIWA score >/=15. Multivitamins/Minerals (Multivitamin With Minerals) [facility] Last Admin: 01/05/19 08:49 Dose: 1 tablet Documented by: Ondansetron HCl (Zofran) 4 mg IV Q8H PRN PRN PRN Reason: NAUSEA/VOMITING Sodium Chloride () 10 - 40 ml IV UD PRN PRN Reason: SALINE FLUSH Last Admin: 01/05/19 03:56 Dose: 20 ml Documented by: Thiamine HCl (Vitamin B1) [facility] Stop: 01/06/19 17:01 Last Admin: 01/05/19 08:49 Dose: 100 mg Documented by: Discharge Activity: Return to Normal Activity Weight Bearing Status: Weight bearing as tolerated Call your doctor if you observe: Fever of 101 or Higher, Shortness of breath, Dizziness, - - rectal bleeding Home Medications: Medications to take at Discharge Acetaminophen [Tylenol Extra Strength] 1,000 mg PO DAILY PRN PRN 01/03/19 Valsartan [Diovan] 80 mg PO DAILY 01/03/19 [id number]/Sod Sulf,Bicarb,Cl/KCl [Golytely Solution] 4,000 ml PO UD #1 soln.recon 01/05/19 Following Prescrptions Were Given to Patient: [id number]/Sod Sulf,Bicarb,Cl/KCl [Golytely Solution] 4,000 ml PO UD #1 soln.recon Transmission Status: Received by [facility]/pharmacy #[id number] Primary Care Physician: Ronak Simmons MD [Primary Care Provider] - Please follow up with your Primary Care Physician in: one week Please Follow Up With: Bola Camacho MD When: Tuesday11/08/18 for outpatient EGD and colonoscopy Patient Instructions: When You Have Gastrointestinal (GI) Bleeding Disposition: Home Minutes spent on discharge:: 35 Patient Condition:: Stable Medical Necessity - Tobacco Use Smoking Status: Current every day smoker - Patient smokes approximately 1/2 pack/day cigarette tobacco usage. Tobacco Use: Cigarettes Meaningful Use Info Meaningful Use Diagnoses (Choose all that apply): None applicable Code Visit Inpatient E&M: 68767 Disch Hosp
== END 2019-01-05 11:40 | disposition home or self-care (01) | DRG 378 ==
LOC: ED 20:04 → ICU 21:46
PROVIDERS: Surgery; Admitting Provider Family Medicine; Emergency Provider Emergency Medicine; Family Provider Family Medicine; PCP Family Medicine; Referring Provider Family Medicine; Visit Provider Student in an Organized Health Care Education/Training Program
DX: K62.5 Hemorrhage of anus and rectum (principal); D62 Acute posthemorrhagic anemia; I10 Essential (primary) hypertension; F17.210 Nicotine dependence, cigarettes, uncomplicated; K21.9 Gastro-esophageal reflux disease without esophagitis; F10.10 Alcohol abuse, uncomplicated
CPT/HCPCS: 80048; 80076; 83605; 83735; 84100; 85014; 85018; 85025; 85610; 86850; 86900; 86901; 86920; 87493; 87506; 99285; J7030; J7040; J7050; P9016; A4216; J2405

== ENCOUNTER 2019-01-08 13:12 | Day surgery (SDC) | payer OTHER, SELFPAY ==
[2019-01-03 21:57] VITALS: BMI 26.9
--- NOTE | 2019-01-06 07:06 | PCM.HP.BLA ---
History and Physical Date of Admission: 01/08/19 Consultation (Standard) Patient Name: FILOMENA DOZIER Date of : 60 Patient Status: Inpatient Attending Provider: Enedina Hernandez Date: 01/04/19 13:49 Initialization Date: 01/04/19 13:49 Reason for Consult Date of Consultation: 01/04/19 Reason for Consultation: hematochezia History of Present Illness: The patient is a 58 year old M Who presents with a one-day history of bright red blood per rectum and some slightly darker blood mixed within the stools. The patient noted onset of diarrhea which he describes as approximately 15 episodes initially with bright red blood mixed within the stools but eventually only blood. As the day progressed the patient had a near-syncopal event feeling lightheaded and dizzy but did not actually lose consciousness. he presented to [facility] with these complaints. He is found to have a hemoglobin of 10.7 a mildly elevated white count of 95 he was found to be mildly hypotensive. I was contacted and asked if I could perform endoscopy and I sent her be comfortable managing the patient. Due to concerns of possible significant anemia and hypovolemia, he was admitted to the ICU. He was hydrated and type and screen was obtained. The patient had no further rectal bleeding since admission to the hospital. He states he is feeling reasonably today.the patient has no complaints of abdominal pain currently. He states he is hungry and wishes he could eat area did The patient does have a history of significant alcohol abuse and tobacco use. Past Medical History Past Medical History (Chronic Problems): Chronic Problems ETOH abuse (Chronic) Tobacco use (Chronic) HTN (hypertension) (Chronic) GERD (gastroesophageal reflux disease) (Chronic) Allergies No Known Allergies Allergy (Verified 01/03/19 19:30) Home Medications: Ambulatory Orders Medication Instructions Recorded Acetaminophen [Tylenol Extra 1,000 mg PO DAILY PRN PRN 01/03/19 Strength] Valsartan [Diovan] 80 mg PO DAILY 01/03/19 Surgical History: - - Patient denies any prior surgical history. Psychiatric History: No pertinent psych hx Lives: Spouse/ Significant Other Smoking Status: Current every day smoker - Patient smokes approximately 1/2 pack/day cigarette tobacco usage. Tobacco Use: Cigarettes Alcohol: Heavy - Patient notes 3-4 normal size beers daily. Drugs: None - *Family History Maternal History Items: - - Patient notes a maternal family history of heart disease and diabetes. Paternal History Items: - - Patient notes a paternal family history of heart disease and diabetes. Review of Systems Constitutional: Reports: Anorexia, Malaise, Weakness, Fatigue HEENT: Denies: Head Aches, Sinus Congestion, Sinus Drainage Cardiovascular: Reports: Light Headedness, Syncope. Denies: Chest Pain, Palpitations Respiratory: Denies: Cough, Shortness of breath at rest, Sputum production Gastrointestinal: Reports: Diarrhea. Denies: Abdominal Pain, Nausea, Vomiting Genitourinary: Denies: Dysuria Musculoskeletal: Denies: Joint Pain, Joint Tenderness Skin: Denies: Rash, Wounds Neurological: Denies: Numbness, Tingling, Focal weakness Psychiatric: Denies: Anxiety, Depression, Homicidal Ideations, Suicidal Ideations Hematologic/ Lymphatic: Denies: Easy Bruising, Easy Bleeding Patient Problems: Active and Suspected Problems Hemorrhagic shock (Acute) Rectal bleeding (Acute) Acute blood loss anemia (Acute) - Physical Exam Vitals/I&O's: Vital Signs Temp Pulse Resp BP Pulse Ox 98.0 F 79 14 129/63 H 96 01/04/19 12:00 01/04/19 12:00 01/04/19 12:00 01/04/19 12:00 01/04/19 12:00 Oxygen Delivery Method Room Air Weight: 81 kg Body Mass Index (BMI) 26.9 Intake and Output for Last 24 Hours 01/02/19 01/03/19 01/04/19 23:59 23:59 23:59 Intake Total 2576 / 2585.38 2275.50 / 2275.50 Output Total 400 / 400 1675 / 1675 Balance 2176 / 2185.38 600.50 / 600.50 General: Alert, Oriented x3, Cooperative Lungs: Rhonchi Cardiovascular: Regular rate, No murmurs Abdomen: Bowel Sounds Present, Soft, Non Tender Laboratory Results 01/03/19 19:32: WBC 15.0 H, RBC 3.23 L, Hgb 10.7 L, Hct 31.8 L, MCV 98.5 H, MCH 33.1 H, MCHC 33.6, RDW Std Deviation 46.4 H, RDW Coeff of Breanne 12.9, Plt Count 265, MPV 9.6, Immature Gran % (Auto) 1.500 H, Neut % (Auto) 67.0, Lymph % (Auto) 24.2, [place] % (Auto) 5.8, Eos % (Auto) 1.1, Baso % (Auto) 0.4, Absolute Neuts (auto) 10.1 H, Absolute Lymphs (auto) 3.63, Nucleated RBC % 0 01/03/19 19:32: Sodium 138, Potassium 3.4 L, Chloride 107, Carbon Dioxide 21.0, Anion Gap 10, BUN 11, Creatinine 0.93, Estim Creat Clear Calc 83.76, Est GFR (MDRD) Af Amer 107, Est GFR (MDRD) Non-Af 89, BUN/Creatinine Ratio 11.8, Glucose 140 H, Calcium 7.9 L 01/03/19 19:32: Blood Type A POSITIVE, Antibody Screen NEGATIVE 01/03/19 19:32: Phosphorus 2.5, Magnesium 2.0 01/03/19 19:32: Crossmatch See Detail 01/03/19 19:55: Lactic Acid 4.2 H* 01/03/19 22:45: Hgb 9.2 L, Hct 27.9 L 01/03/19 22:45: Lactic Acid Cancelled 01/03/19 22:45: Lactic Acid 2.5 H 01/04/19 03:15: Hgb 9.7 L, Hct 29.6 L 01/04/19 03:15: Sodium 141, Potassium 4.4, Chloride 112 H, Carbon Dioxide 23.0, Anion Gap 6, BUN 10, Creatinine 0.79, Estim Creat Clear Calc 98.61, Est GFR (MDRD) Af Amer 129, Est GFR (MDRD) Non-Af 107, BUN/Creatinine Ratio 12.6, Glucose 110 H, Calcium 7.3 L 01/04/19 03:15: Total Bilirubin 0.70, Direct Bilirubin 0.14, AST 12 L, ALT 20, Alkaline Phosphatase 60, Total Protein 5.3 L, Albumin 2.6 L, Globulin 2.7 01/04/19 06:55: PT 13.7, INR 1.1 01/04/19 08:05: WBC 7.5, RBC 3.32 L, Hgb 10.7 L, Hct 32.2 L, MCV 97.0 H, MCH 32.2 H, MCHC 33.2, RDW Std Deviation 51.2 H, RDW Coeff of Breanne 14.5, Plt Count 202, MPV 9.3, Immature Gran % (Auto) 1.900 H, Neut % (Auto) 69.4, Lymph % (Auto) 22.0, [place] % (Auto) 5.5, Eos % (Auto) 0.8, Baso % (Auto) 0.4, Absolute Neuts (auto) 5.2, Absolute Lymphs (auto) 1.64, Nucleated RBC % 0 Current Medications Acetaminophen (Tylenol) 650 mg PO Q6H PRN PRN PRN Reason: Non-cardiac pain (mod-severe) Hydrocodone Bitart/Acetaminophen ([place] 5mg-325mg) 1 - 2 tablet PO Q4H PRN PRN PRN Reason: Pain Score 4-10/10 Albuterol Sulfate (Ventolin Aerosols) 2.5 mg INHALATION Q2H PRN PRN PRN Reason: dyspnea, wheezing Dextrose (D50w Syringe) 0 gm IV X1 PRN; Protocol PRN Reason: Hypoglycemia Folic Acid (Folic Acid) 1 mg PO DAILY@0800 [facility] Stop: 01/06/19 08:01 Last Admin: 01/04/19 08:15 Dose: 1 mg Documented by: Glucagon () 1 mg IM .X1 PRN PRN Reason: Hypoglycemia Hydralazine HCl (Apresoline Iv) 10 mg IV Q4H PRN PRN PRN Reason: SBP > 160 Pantoprazole Sodium 40 mg/ (Sodium Chloride) 110 mls @ 330 mls/hr IV Q12 GRANT Last Infusion: 01/04/19 10:10 Dose: Infused Documented by: Sodium Chloride () 500 mls @ 15 mls/hr IV PRN PRN PRN Reason: Blood Transfusion Last Infusion: 01/04/19 09:37 Dose: Infused Documented by: Sodium Chloride () 250 mls @ 15 mls/hr IV .[id number] PRN PRN Reason: Saline Flush Last Infusion: 01/04/19 10:10 Dose: 15 mls/hr Documented by: Lorazepam (Ativan) 2 mg PO Q2H PRN PRN; Protocol PRN Reason: CIWA score > 8 but <15 Lorazepam (Ativan) 2 mg PO UD PRN; Protocol PRN Reason: CIWA score >/=15. Lorazepam (Ativan) 2 mg IV Q2H PRN PRN; Protocol PRN Reason: CIWA score > 8 but <15 Lorazepam (Ativan) 2 mg IV UD PRN; Protocol PRN Reason: CIWA score >/=15. Multivitamins/Minerals (Multivitamin With Minerals) [facility] Last Admin: 01/04/19 08:15 Dose: 1 tablet Documented by: Ondansetron HCl (Zofran) 4 mg IV Q8H PRN PRN PRN Reason: NAUSEA/VOMITING Sodium Chloride () 10 - 40 ml IV UD PRN PRN Reason: SALINE FLUSH Last Admin: 01/04/19 09:50 Dose: 10 ml Documented by: Thiamine HCl (Vitamin B1) [facility] Stop: 01/06/19 17:01 Last Admin: 01/04/19 08:15 Dose: 100 mg Documented by: Assessment/Plan All Active Problems Hemorrhagic shock (Acute) Rectal bleeding (Acute) Acute blood loss anemia (Acute) hematochezia, history of alcohol and tobacco use I would plan to perform upper and lower endoscopy. As the patient's hemoglobin has remained stable and this is not an emergency. I would recommend upper and lower endoscopy to be performed some mild electively. Unfortunately, the endoscopy schedules follow-up Tuesday for elective procedures. The patient did not wish to stay in until Tuesday for his procedure so as long as he has no further bleeding I be comfortable with him being discharged to home with plans to bowel prep on Tuesday and he is artery scheduled for upper and lower endoscopy Tuesday. The patient stands the risks, benefits, complications and possible Dietz's endoscopy consents to the planned procedures.
[2019-01-08 13:29] VITALS: BP 132/74; PULSE 80; RESP 16; TEMP 36.6; O2SAT 98; BMI 25.7
[2019-01-08] MEDS: Lactated Ringers 1,000 ML 100 ML IV (13:37)
--- NOTE | 2019-01-08 14:30 | IMM_PTH ---
PATIENT: FILOMENA DOZIER LOC: EN U#:[id number] AGE/SX: 58/M ROOM: RE01/08/[address]: Dr. Bola Camacho MD : 1960 BED: DIS: 01/08/2019 SPEC #: [id number] RECD: 01/09/19 14:39 STATUS: OTONIEL REQ #: [id number] BILLIE: 01/08/19 14:[address]: Bola Camacho DEPT: IMMUNOHISTOCHEMISTRY RECD BY: Leda Gonzalez ENTERED: 01/09/19 14:40 SP TYPE: IMMUNO OTHR DR: Dr. Ronak Simmons MD Tissues: A - Stomach, NOS Procedures: H Pylori (initial) PHYSICIAN & INSTITUTION [place] [id number] SPECIMEN INFORMATION: Tissue Source: A - Antrum biopsy Clinical Info: Anemia, rectal bleeding Specimen Number: [id number] CPT code: 04007 METHODOLOGY: Deparaffinized sections of prefer/formalin-fixed tissue or PAP/DQ stained slides are incubated with monoclonal/polyclonal antibodies/oligonucleotide probes. Localization is made via biotin free immunoperoxidase method. Appropriate controls are performed and reacted as expected. Results on target cell population are indicated in the following table: RESULTS: ANTIBODY / CLONE RESULT Block A H Pylori (polyclonal) negative These tests were developed and their performance characteristics determined by [facility]. They may not have been cleared or approved by the U.S. Food and Drug Administration. The FDA has determined that such clearance or approval is not necessary. INTERPRETATION: A. Antral biopsy: Negative for Helicobacter pylori organisms. SJ:allan 01/10/19
--- NOTE | 2019-01-08 14:30 | EGD_PTH ---
PATIENT: FILOMENA DOZIER LOC: EN U#:[id number] AGE/SX: 58/M ROOM: RE01/08/[address]: Dr. Bola Camacho MD : 1960 BED: DIS: 01/08/2019 SPEC #: [id number] RECD: 01/08/19 19:31 STATUS: OTONIEL JAHAIRA #: [id number] BILLIE: 01/08/19 14:[address]: Bola Camacho DEPT: SURGICAL PATHOLOGY RECD BY: Marisol Quan ENTERED: 01/09/19 10:55 SP TYPE: EGD BIOPSY DESMOND DR: Dr. Ronak Simmons MD Tissues: A - Gastric mucous membrane B - Transverse colon C - POLYP D - Sigmoid colon biopsy E - Rectum, NOS Procedures: Surgery Specimen Level IV HEADER OPERATION: [place] [place] DIAGNOSIS: Anemia, rectal bleeding TISSUE SUBMITTED: A. Antrum biopsy for histo and H. pylori, B. Transverse polyp (2 cold snare), C. Hepatic flexure polyps (2 cold snare), D. Sigmoid polyp (cold snare), E. Rectal polyp (cold snare) MICROSCOPIC DIAGNOSIS A. Antral biopsy: Mild gastritis. See microscopic description and comment. B. Transverse colon polyp, biopsy: Fragments of tubular adenoma. Fragments of fecal material. C. Hepatic flexure polyps, biopsy: Tubular adenoma. Fragments of fecal material. D. Sigmoid polyp, biopsy: Tubular adenoma. E. Rectal polyp, biopsy: Tubular adenoma. SJ:allan 01/10/19 COMMENT A. The results of immunohistochemistry for Helicobacter pylori will be reported separately ([id number]). MICROSCOPIC DESCRIPTION Slides are reviewed. A. The specimen shows fragments of gastric mucosa with chronic inflammatory cell infiltrates in the lamina propria consisting of lymphocytes and plasma cells, consistent with mild chronic gastritis. GROSS DESCRIPTION A - Received in fixative is one container labeled with the patient's name and designated antrum biopsy. The specimen consists of one irregular fragment of light guillen soft tissue that measures 0.3 x 0.3 x 0.1 cm. The specimen is totally submitted in one cassette. B - Received in fixative is one container labeled with the patient's name and designated transverse polyp. The specimen consists of multiple irregular fragments of light guillen soft tissue and fecal debris that in aggregate measure 2.5 x 2 x 0.1 cm. The specimen is totally submitted in one cassette. C - Received in fixative is one container labeled with the patient's name and designated hepatic flexure polyps. The specimen consists of multiple irregular fragments of light guillen soft tissue and fecal debris that in aggregate measure 2.5 x 1 x 0.1 cm. The specimen is totally submitted in one cassette. D - Received in fixative is one container labeled with the patient's name and designated sigmoid polyp. The specimen consists of one irregular fragment of light guillen soft tissue that measures 1.5 x 1 x 0.2 cm. The specimen is totally submitted in one cassette. E - Received in fixative is one container labeled with the patient's name and designated rectal polyp. The specimen consists of two irregular fragments of light guillen soft tissue that in aggregate measure 0.5 x 0.5 x 0.1 cm. The specimen is totally submitted in one cassette. / AM:allan 01/09/19 TC:1 CPT: 96735 x5
[2019-01-08 17:25] VITALS: BP 122/95; BP 132/74; PULSE 93; RESP 16; TEMP 36.2; O2SAT 96
--- NOTE | 2019-01-08 17:25 | OP.EGD_ITS ---
Patient Name: Evangelist Pederson Procedure Date: 01/08/2019 4:39 PM Date of : 1960 Age: 58 Procedure: Upper GI endoscopy Indications: Hematochezia Providers: Bola Camacho MD Medicines: Monitored Anesthesia Care Patient Profile: This is a 58 year old male. Refer to note in patient chart for documentation of history and physical. Complications: No immediate complications. Procedure: Pre-Anesthesia Assessment: - Prior to the procedure, a History and Physical was performed, and patient medications and allergies were reviewed. The patient is competent. The risks and benefits of the procedure and the sedation options and risks were discussed with the patient. All questions were answered and informed consent was obtained. Patient identification and proposed procedure were verified by the physician, the nurse and the j2ee engineer in the procedure room. Mental Status Examination: alert and oriented. Airway Examination: normal oropharyngeal airway and neck mobility. Respiratory Examination: clear to auscultation. CV Examination: normal. Prophylactic Antibiotics: The patient does not require prophylactic antibiotics. Prior Anticoagulants: The patient has taken no previous anticoagulant or antiplatelet agents. ASA Grade Assessment: III - A patient with severe systemic disease. After reviewing the risks and benefits, the patient was deemed in satisfactory condition to undergo the procedure. The anesthesia plan was to use monitored anesthesia care (MAC). Immediately prior to administration of medications, the patient was re-assessed for adequacy to receive sedatives. The heart rate, respiratory rate, oxygen saturations, blood pressure, adequacy of pulmonary ventilation, and response to care were monitored throughout the procedure. The physical status of the patient was re-assessed after the procedure. After obtaining informed consent, the endoscope was passed under direct vision. Throughout the procedure, the patient's blood pressure, pulse, and oxygen saturations were monitored continuously. The gastroscope was introduced through the mouth, and advanced to the jejunum. The upper GI endoscopy was accomplished without difficulty. The patient tolerated the procedure well. Scope In: 4:50:31 PM Scope Out: 4:55:54 PM Total Procedure Duration Time 0 hours 5 minutes 23 seconds Findings: The examined jejunum was normal. The examined duodenum was normal. Scattered moderate inflammation characterized by congestion (edema), erosions and erythema was found in the gastric antrum. Biopsies were taken with a cold forceps for Helicobacter pylori testing using PyloriTek test. Biopsies were taken with a cold forceps for histology. The examined esophagus was normal. Impression: - Normal examined jejunum. - Normal examined duodenum. - Gastritis. Biopsied. - Normal esophagus. Recommendation: - Discharge patient to home. - Resume previous diet. - Use Prilosec (omeprazole) 40 mg PO daily. - Continue present medications. Procedure Code(s): --- Professional --- 87236, Esophagogastroduodenoscopy, flexible, transoral; with biopsy, single or multiple CPT copyright 2017 [employer]. All rights reserved. The codes documented in this report are preliminary and upon dope mixer review may be revised to meet current compliance requirements. Bola Camacho MD 01/08/2019 5:25:06 PM This report has been signed electronically. Number of Addenda: 0 Note Initiated On: 01/08/2019 4:39 PM
--- NOTE | 2019-01-08 17:28 | OP.COLON_ITS ---
Patient Name: Evangelist Pederson Procedure Date: 01/08/2019 4:56 PM Date of : 1960 Age: 58 Procedure: Colonoscopy Indications: Hematochezia Providers: Bola Camacho MD Medicines: Monitored Anesthesia Care Patient Profile: This is a 58 year old male. Refer to note in patient chart for documentation of history and physical. Last Colonoscopy: date unknown. Complications: No immediate complications. Procedure: Pre-Anesthesia Assessment: - Prior to the procedure, a History and Physical was performed, and patient medications and allergies were reviewed. The patient is competent. The risks and benefits of the procedure and the sedation options and risks were discussed with the patient. All questions were answered and informed consent was obtained. Patient identification and proposed procedure were verified by the physician, the nurse and the traffic safety administrator in the procedure room. Mental Status Examination: alert and oriented. Airway Examination: normal oropharyngeal airway and neck mobility. Respiratory Examination: clear to auscultation. CV Examination: normal. Prophylactic Antibiotics: The patient does not require prophylactic antibiotics. Prior Anticoagulants: The patient has taken no previous anticoagulant or antiplatelet agents. ASA Grade Assessment: III - A patient with severe systemic disease. After reviewing the risks and benefits, the patient was deemed in satisfactory condition to undergo the procedure. The anesthesia plan was to use monitored anesthesia care (MAC). Immediately prior to administration of medications, the patient was re-assessed for adequacy to receive sedatives. The heart rate, respiratory rate, oxygen saturations, blood pressure, adequacy of pulmonary ventilation, and response to care were monitored throughout the procedure. The physical status of the patient was re-assessed after the procedure. After I obtained informed consent, the scope was passed under direct vision. Throughout the procedure, the patient's blood pressure, pulse, and oxygen saturations were monitored continuously. The Colonoscope was introduced through the anus and advanced to the cecum, identified by the appendiceal orifice, ileocecal valve and palpation. The colonoscopy was performed without difficulty. The patient tolerated the procedure well. The quality of the bowel preparation was good. Scope In: 4:58:30 PM Scope Withdrawal Time 0 hours 10 minutes 44 seconds Scope Out: 5:20:23 PM Total Procedure Duration Time 0 hours 21 minutes 53 seconds Findings: The perianal and digital rectal examinations were normal. Six sessile polyps were found in the rectum, sigmoid colon, transverse colon and hepatic flexure. The polyps were medium in size. These polyps were removed with a cold snare. Resection and retrieval were complete. Many small and large-mouthed diverticula were found in the entire colon. The exam was otherwise without abnormality. The retroflexed view of the distal rectum and anal verge was normal and showed no anal or rectal abnormalities. Impression: - Six medium polyps in the rectum, in the sigmoid colon, in the transverse colon and at the hepatic flexure, removed with a cold snare. Resected and retrieved. - Diverticulosis in the entire examined colon. - The examination was otherwise normal. - The distal rectum and anal verge are normal on retroflexion view. Recommendation: - Discharge patient to home. - Resume previous diet. - Continue present medications. - Return to my office in 1 week. - Repeat colonoscopy is recommended. The colonoscopy date will be determined after pathology results from today's exam become available for review. Procedure Code(s): --- Professional --- 88834, Colonoscopy, flexible; with removal of tumor(s), polyp(s), or other lesion(s) by snare technique CPT copyright 2017 [employer]. All rights reserved. The codes documented in this report are preliminary and upon industrial education instructor review may be revised to meet current compliance requirements. Bola Camacho MD 01/08/2019 5:27:21 PM This report has been signed electronically. Number of Addenda: 0 Note Initiated On: 01/08/2019 4:56 PM
[2019-01-08 17:30] VITALS: BP 117/72; BP 132/74; PULSE 77; RESP 16; O2SAT 98
[2019-01-08 17:35] VITALS: BP 121/76; BP 132/74; PULSE 78; RESP 16; O2SAT 98
[2019-01-08 17:40] VITALS: BP 132/74; BP 138/80; PULSE 75; RESP 16; TEMP 36.6; O2SAT 99
[2019-01-08 17:50] VITALS: BP 132/74
== END 2019-01-08 18:02 | disposition home or self-care (01) ==
LOC: EN 13:12 → AC 13:14
PROVIDERS: Family Provider Family Medicine; PCP Family Medicine; Referring Provider Family Medicine; Visit Provider Surgery
PROC: 0DJD8ZZ Inspection of Lower Intestinal Tract, Via Natural or Artificial Opening Endoscopic (ICD-10-PCS; CPT 45378; principal; 2019-01-08 14:25)
DX: K29.70 Gastritis, unspecified, without bleeding (principal); D12.3 Benign neoplasm of transverse colon; D12.5 Benign neoplasm of sigmoid colon; D12.8 Benign neoplasm of rectum; K57.30 Diverticulosis of large intestine without perforation or abscess without bleeding; D62 Acute posthemorrhagic anemia; I10 Essential (primary) hypertension; K21.9 Gastro-esophageal reflux disease without esophagitis; G25.81 Restless legs syndrome; Z87.19 Personal history of other diseases of the digestive system; Z79.899 Other long term (current) drug therapy; F10.99 Alcohol use, unspecified with unspecified alcohol-induced disorder; F17.210 Nicotine dependence, cigarettes, uncomplicated
CPT/HCPCS: 43239; 45385; 88305; 88342; J7120; J2405

== ENCOUNTER 2022-05-22 00:26 | Emergency (ER) | payer BC, SELFPAY ==
[2022-05-22 00:30] VITALS: BP 168/80; PULSE 88; RESP 18; TEMP 36.4; O2SAT 96; BMI 28.2
--- NOTE | 2022-05-22 01:21 | CT_ITS ---
INDICATION: Abdominal pain, blood per rectum EXAMINATION: CT Abdomen And Pelvis W/ Contrast Injection TECHNIQUE: Helically acquired images were obtained of the abdomen and pelvis following oral and IV contrast. 2-D reconstructions reviewed. A radiation dose optimization technique was used for this scan. IV Contrast dosage and agent: 100 cc [id number]-300 Oral contrast: Yes COMPARISON: None. FINDINGS: LOWER CHEST: Bilateral dependent atelectatic changes. Normal size heart with coronary arterial calcifications and stents. LIVER: Tiny hepatic cyst, too small to characterize and no additional follow-up recommended at this time. No concerning lesion. GALLBLADDER AND BILIARY TREE: No calcified gallstones identified. No gallbladder wall edema demonstrated. No significant biliary ductal dilation. PANCREAS: No discrete mass or peripancreatic edema. SPLEEN: Normal size without focal cystic or solid mass. ADRENAL GLANDS: Small bilateral adrenal nodules, largest on the right measuring 12 mm. KIDNEYS AND URETERS: Normal renal size and position. 7 mm stone within upper pole of right kidney. No ureteral stones identified. No hydronephrosis or concerning renal lesion. PERITONEUM: No peritoneal free air detected. No significant free fluid. RETROPERITONEUM: No retroperitoneal mass or pathologic fluid collection. BOWEL: Normal appendix within right upper pelvis. No bowel obstruction or significant bowel thickening. Scattered colonic diverticula. No focal inflammatory change. LYMPH NODES: No enlarged mesenteric or retroperitoneal lymph nodes. VESSELS: Generalized atherosclerosis with no abdominal aortic aneurysm. URINARY BLADDER: Unremarkable as visualized. REPRODUCTIVE ORGANS: No pelvic masses. ABDOMINAL WALL: Small right inguinal fat hernia. BONES: Mild degenerative changes along spine. Mild chronic grade [address] L[address]/Abdomen/Pelvis WITH Contrast IMPRESSION: 1. Colonic diverticulosis but no evidence of diverticulitis or other acute bowel pathology. 2. Nonobstructing right nephrolithiasis. 3. Small indeterminate bilateral adrenal nodules. Likely benign adenomas. Consider nonemergent dedicated follow-up. 4. Other nonurgent findings within body of report. Electronically Signed: Alejandro García MD at 3:56 EDT ,
[2022-05-22 01:48] LABS: Bacteria 0 SEEN /hpf (None Seen); Mucous, Urine 0 SEEN /hpf (<or=2+); Squamous Epithelial Cells - UA 0 SEEN /hpf (0-5); White Blood Cells 0 SEEN /hpf (0-5)
[2022-05-22 01:51] LABS: Absolute Lymphocyte Count 2.28 X10^3/uL (0.83-4.51); Absolute Neutrophil Count 5.3 X10^3/uL (2.0-7.7); Basophil# 0.06 X10^3/uL; Basophil% 0.7 % (0-1); Eosinophil# 0.24 X10^3/uL; Eosinophils% 2.8 % (0-5); Hematocrit 35.4 % (40-54); Hemoglobin 11.8 g/dL (13.0-16.5); Lymphocyte # 2.28 X10^3/ul (0.83-4.51); Lymphocyte % 26.2 % (19-41); Mean Corp Hgb Conc 33.3 g/dL (32-36); Mean Corpuscular Hgb 32.1 pg (27.0-32.0); Mean Corpuscular Volume 96.2 fL (80-94); Mean Platelet Vol. 8.9 fl (6.2-12.0); Monocyte# 0.65 X10^3/uL; Monocyte% 7.5 % (0-10); NRBC Flagged by Analyzer 0 % (0-5); Neutrophil % 60.7 % (47-70); Platelet Count 276 K/mm3 (150-450); RBC Distribution Width CV 12.8 % (11.6-14.6); RBC Distribution Width SD 45.1 fl (35.1-43.9); Red Blood Count 3.68 M/mm3 (4.6-6.2); White Blood Count 8.7 K/mm3 (4.4-11.0)
--- NOTE | 2022-05-22 01:51 | EDS_ITS ---
HPI HPI - GI History of Present Illness Chief Complaint: GI Bleed Abdominal Pain/Flank Pain Onset: Days (2) Context: Gradual Onset Timing: Continuous Quality: Burning Location: RLQ and LLQ Worsened by: Nothing Relieved by: Nothing Nausea/Vomiting/Emesis GI Symptom: Negative for Nausea or Vomiting Diarrhea/Melena/Hematochezia GI Symptom: Positive for Hematochezia Onset: Days (4) Stool Quality: Positive for BRB per rectum Associated Symptoms Associated Symptoms: Negative for Dysuria, Frequency or Hematuria Narrative Narrative: Patient presents with rectal bleeding that has been getting worse over the last 4 days. Patient states he has had bright red blood per rectum every day for the last 4 days. Patient admits to some lower abdominal pain that has been getting worse over the last 2 days. Patient states nothing makes his pain worse and nothing makes it better. Patient denies any nausea or vomiting. Patient denies any urinary complaints. Patient states he has a history of diverticulitis but has not had any bleeding with. PFSH PFSH Medical History HTN (hypertension) Tobacco use Home Medications acetaminophen 500 mg tablet 1,000 mg PO DAILY PRN PRN Pain Score 1-3/10 01/03/19 [History Last Taken 01/02/19] valsartan 80 mg tablet 80 mg PO DAILY bp 01/03/19 [History Last Taken 01/08/19 07:30] hydrocortisone 2.5 % topical cream with perineal applicator (Anusol-HC) 1 applic OR DAILY PRN hemorrhoids #30 grams 05/22/22 [Rx Last Taken Unknown] pyridoxine (vitamin B6) 500 mg capsule 100 mg PO DAILY 05/22/22 [History Last Taken Unknown] Allergy/AdvReac Type Severity Reaction Status Date / Time No Known Allergies Allergy Verified 05/22/22 00:29 Surgical History no surgical history no surgical history Social History Smoking Status: Current every day smoker tobacco type: cigarettes ROS ROS ED Constitutional Constitutional ED: Denies chills or fever(s) Eyes Eyes: Denies blurry vision or change in vision ENT ENT ED: Denies rhinorrhea or sore throat Cardiovascular Cardiovascular: Denies chest pain or palpitations Respiratory/Chest Respiratory/Chest: Denies cough or dyspnea Gastrointestinal Gastrointestinal: Reports abdominal pain; Denies nausea or vomiting Genitourinary Genitourinary ED: Denies dysuria or hematuria Musculoskeletal Musculoskeletal: Reports back pain; Denies neck pain Integumentary Denies abscess or rash Neurologic Neurologic: Denies headache(s) or weakness Allergic/Immunologic Allergic/Immunologic ED: Denies mouth swelling or urticaria EXAM Physical Exam Const Vital Signs: 05/22/22 00:30 05/22/22 03:56 Temperature 97.5 F L Temperature Source Oral Pulse Rate 88 78 Respiratory Rate 18 16 Blood Pressure 168/80 H Blood Pressure Mean 109 Pulse Ox 96 98 Oxygen Delivery Method Room Air Room Air Positive well nourished and well developed General Appearance ED: well developed HEENT Reports moist mucous membranes Neck supple and no JVD Resp normal respiratory effort and clear to auscultation bilaterally Cardio regular rate, regular rhythm and no murmurs GI normal to inspection, nondistended, normoactive bowel sounds GI Narrative: Rectal exam showed 2 external hemorrhoids. There is mild tenderness. There is no thrombosis noted. There is some mild blood on one of the hemorrhoids. Palpation: soft and tender LLQ, RLQ and suprapubic; Negative for guarding or rebound tenderness present Extremity normal to inspection General Extremety ED: Negative for edema or tenderness General Extremity: Negative for edema Neuro oriented x3, CN's II-XII intact bilaterally and no sensory deficits noted Sensorium / Orientation: alert Motor Exam: strength 5/5 throughout Psych mental status grossly normal Skin no rashes or lesions noted MDM MDM MDM Narrative Medical decision making narrative: Differential diagnosis includes gastrointestinal bleeding, mild diverticulitis, external hemorrhoid, internal hemorrhoid, colonic mass, tumor, and coagulopathy. CBC will be obtained to assess for anemia and leukocytosis. Comprehensive metabolic profile will be obtained to assess for hepatic function, renal function, and electrolyte abnormality. Urinalysis will be obtained to assess for urinary tract infection.. PT with INR and PTT will be obtained to assess for coagulopathy. CT scan of the abdomen pelvis will be obtained to assess for diverticulitis, mass, and tumor. Lab Data Attestation: I reviewed the patient's lab results. Lab results narrative: CBC was reviewed. There is a slight anemia with a hemoglobin of 11.8 and hematocrit 35.4. These are actually improved from previous results. Comprehensive metabolic profile shows a BUN of 28 and creatinine of 1.32. PT was INR and PTT were reviewed and were within normal limits. Urinalysis was reviewed and was within normal limits. Labs: Laboratory Results - last 24 hr 05/22/22 05/22/22 05/22/22 01:30 01:30 01:30 WBC 8.7 RBC 3.68 L Hgb 11.8 L Hct 35.4 L MCV 96.2 H MCH 32.1 H MCHC 33.3 RDW Std Deviation 45.1 H RDW Coeff of Breanne 12.8 Plt Count 276 MPV 8.9 Immature Gran % (Auto) 2.100 H Neut % (Auto) 60.7 Lymph % (Auto) 26.2 Mccreary % (Auto) 7.5 Eos % (Auto) 2.8 Baso % (Auto) 0.7 Absolute Neuts (auto) 5.3 Absolute Lymphs (auto) 2.28 Nucleated RBC % 0 PT 12.3 INR 0.9 APTT 25.2 Sodium 137 Potassium 4.1 Chloride 105 Carbon Dioxide 24.0 Anion Gap 8 BUN 28 H Creatinine 1.32 H Estim Creat Clear Calc 56.86 Est GFR (MDRD) Af Amer 71 Est GFR (MDRD) Non-Af 59 L BUN/Creatinine Ratio 21.2 H Glucose 119 H Calcium 8.7 Total Bilirubin 0.20 AST 30 ALT 50 Alkaline Phosphatase 74 Total Protein 7.1 Albumin 3.2 Globulin 3.9 Albumin/Globulin Ratio 0.8 L Urine Color Urine Clarity Urine pH Ur Specific Clear Urine Protein Urine Glucose (UA) Urine Ketones Urine Occult Blood Urine Nitrite Urine Bilirubin Urine Urobilinogen Ur Leukocyte Esterase Urine RBC Urine WBC Ur Squamous Epith Cells Urine Bacteria Urine Mucus 05/22/22 01:30 WBC RBC Hgb Hct MCV MCH MCHC RDW Std Deviation RDW Coeff of Breanne Plt Count MPV Immature Gran % (Auto) Neut % (Auto) Lymph % (Auto) Mccreary % (Auto) Eos % (Auto) Baso % (Auto) Absolute Neuts (auto) Absolute Lymphs (auto) Nucleated RBC % PT INR APTT Sodium Potassium Chloride Carbon Dioxide Anion Gap BUN Creatinine Estim Creat Clear Calc Est GFR (MDRD) Af Amer Est GFR (MDRD) Non-Af BUN/Creatinine Ratio Glucose Calcium Total Bilirubin AST ALT Alkaline Phosphatase Total Protein Albumin Globulin Albumin/Globulin Ratio Urine Color Yellow Urine Clarity Clear Urine pH 6.0 Ur Specific Clear 1.015 Urine Protein 15 H Urine Glucose (UA) Normal Urine Ketones Negative Urine Occult Blood 150 H Urine Nitrite Negative Urine Bilirubin Negative Urine Urobilinogen Normal Ur Leukocyte Esterase Negative Urine RBC 0-5 SEEN Urine WBC 0 SEEN Ur Squamous Epith Cells 0 SEEN Urine Bacteria 0 SEEN Urine Mucus 0 SEEN Radiography Diagnostic Testing: Clinical Impression(s) from Imaging Studies Abdomen/Pelvis CT 05/22/22 01:21 IMPRESSION: 1. Colonic diverticulosis but no evidence of diverticulitis or other acute bowel pathology. 2. Nonobstructing right nephrolithiasis. 3. Small indeterminate bilateral adrenal nodules. Likely benign adenomas. Consider nonemergent dedicated follow-up. 4. Other nonurgent findings within body of report. Electronically Signed: Alejandro García MD at 3:56 EDT , CT scan of the abdomen and pelvis was obtained. There is diverticulosis but no evidence of diverticulitis. There is no other acute bowel pathology noted. There is no free air or free fluid. There is no evidence of obstruction or perforation. This was interpreted by the radiologist and was also independently reviewed by myself. Treatment and Re-Evaluation :: Patient was feeling better on reevaluation. Patient was advised of his findings. Patient was advised that his bleeding may be coming from his external hemorrhoids. Patient was given a prescription for Anusol HC cream. Patient was instructed to follow-up with his primary care physician in 3 to 5 days. Patient was instructed return if worse in any way. Patient understood and was agreeable with the plan. All questions were answered. Discharge Plan Triage Chief Complaint: GI Bleed ED Provider: Damon Menjivar Dx/Rx/DC Orders Clinical Impression: Rectal bleeding, Bleeding external hemorrhoids Instructions: ED Hemorrhoids Prescriptions: New hydrocortisone [Anusol-HC] 2.5 % cream with perineal applicator 1 applic OR DAILY PRN (Reason: hemorrhoids) Qty: 30 0RF No Action valsartan 80 MG tablet 80 mg PO DAILY Label Comments: TAKE 1 TABLET BY MOUTH EVERY DAY acetaminophen 500 MG tablet 1,000 mg PO DAILY PRN PRN (Reason: Pain Score 1-3/10) B-6-500 500 mg Capsule 100 mg PO DAILY Primary Care Provider: Ronak Simmons Referrals: Ronak Simmons MD [Primary Care Provider] - 3-5 Days Disposition Disposition: Home, Self Care
[2022-05-22 02:04] LABS: International Normalized Ratio 0.9; Prothrombin Time (Protime)PT. 12.3 SECONDS (11.7-14.9)
[2022-05-22 02:05] LABS: Color, Urine Yellow (Yellow); Glucose, Dipstick Normal (Normal); Ketone-Dipstick Negative (Negative); Leukocyte Esterase-Dipstick Negative /ul (Negative); Nitrite-Dipstick Negative (Negative); Occult Blood-Urine 150 /ul (Negative); Partial Thromboplast Time 25.2 Seconds (24.1-36.2); Protein-Dipstick 15 mg/dl (Negative); Specific Gravity, Urine 1.015 (1.002-1.030); Urine Bilirubin Dipstick Negative (Negative); Urine Clarity Clear (Clear); Urine Urobilinogen Normal (Normal)
[2022-05-22 02:08] LABS: ALB/GLOB Ratio 0.8 RATIO (0.9-2.4); AST(SGOT) 30 U/L (15-37); Alanine Aminotransfer ALT/SGPT 50 U/L (16-61); Albumin, Serum 3.2 g/dL (3.2-5.0); Alkaline Phosphatase 74 U/L (45-117); Anion Gap 8 (5-15); BUN 28 mg/dL (7-18); BUN/Creat Ratio 21.2 RATIO (10-20); Calcium,Total 8.7 mg/dL (8.5-10.1); Chloride 105 mmol/L (98-107); Creatinine, Serum 1.32 mg/dL (0.70-1.30); EST Glomerular Filtration Rate 59 mL/min (>60); Est Glom Filt Rate - Afr Amer 71 mL/min (>60); Estimated Creatinine Clearance 56.86 ml/min; Globulin 3.9 g/dL (2.2-4.2); Glucose 119 mg/dL (74-106); Potassium 4.1 mmol/L (3.5-5.1); Protein, Total 7.1 g/dL (6.4-8.2); Sodium Level 137 mmol/L (136-145)
[2022-05-22 02:43] LABS: Red Blood Cells-Urine 0-5 SEEN /hpf (0-5)
[2022-05-22 03:56] VITALS: PULSE 78; RESP 16; O2SAT 98
[2022-05-22 04:28] VITALS: BP 150/83; PULSE 80; RESP 16; O2SAT 96
== END 2022-05-22 04:30 | disposition home or self-care (01) ==
PROVIDERS: Emergency Provider Emergency Medicine; PCP Family Medicine; Visit Provider Emergency Medicine
DX: K64.4 Residual hemorrhoidal skin tags (principal); K62.5 Hemorrhage of anus and rectum; I10 Essential (primary) hypertension; R10.9 Unspecified abdominal pain; F17.210 Nicotine dependence, cigarettes, uncomplicated; Z79.899 Other long term (current) drug therapy
CPT/HCPCS: 74177; 80053; 81001; 85025; 85610; 85730; 99282; Q9967; A4216

== ENCOUNTER 2025-01-21 08:28 | Emergency (ER) | payer BC, SELFPAY ==
[2025-01-21 08:29] VITALS: BP 141/78; PULSE 95; RESP 16; TEMP 36; O2SAT 100; BMI 24.4
--- NOTE | 2025-01-21 08:42 | EKG12_ITS ---
Test Reason : CP Blood Pressure : */* mmHG Vent. Rate : 90 BPM Atrial Rate : 90 BPM P-R Int : 196 ms QRS Dur : 90 ms QT Int : 346 ms P-R-T Axes : 38 71 51 degrees QTcB Int : 423 ms Normal sinus rhythm Nonspecific ST abnormality Abnormal ECG Confirmed by Go Gross ([id number]), story editor USHA DAIGLE ([id number]) on 01/23/2025 11:30:27 AM Referred By: [email or web address] Confirmed By: Go Gross
--- NOTE | 2025-01-21 08:43 | ED.VIS.CHEST ---
HPI History of Present Illness Chief Complaint: Chest Pain Informant: patient Narrative Narrative: 64-year-old male presenting to the emergency room with a chief complaint of chest pressure/pain. Patient states last Tuesday and he developed a discomfort on the left side of his chest sometimes on the right and sometimes in the left arm. He notes it associated with nausea. No vomiting. He notes he has been more short of breath recently. He also notes that over the past month he has lost about 20 pounds. He is unsure why. He notes twice weekly beer. He is a smoker. No change in cough or fevers. He does note that sometimes he sweats at night. He states that he takes valsartan for hypertension. No change in urination or stools. PFSH PFSH Medical History HTN (hypertension) Tobacco use Home Medications ?Medication ?Instructions ?Recorded ?Last Taken ?Type hydrocodone-acetaminophen 5-325mg 1 tab PO Q6H PRN pain 3 days #12 01/21/25 Unknown Rx 5mg-325mg tabs ibuprofen 200 mg tablet 400 mg PO Q4H PRN fever or pain 01/21/25 01/20/25 History omeprazole 20 mg capsule,delayed 20 mg PO BID #28 caps 01/21/25 Unknown Rx release valsartan 160 1 tab PO DAILY 01/21/25 01/21/25 History mg-hydrochlorothiazide 12.5 mg tablet Allergy/AdvReac Type Severity Reaction Status Date / Time No Known Allergies Allergy Verified 01/21/25 08:30 Social History Smoking Status: Current every day smoker tobacco type: cigarettes ROS ROS ED Constitutional Constitutional ED: Reports sweats and weight loss; Denies chills or fever(s) Eyes Eyes: Denies change in vision or diplopia ENT ENT ED: Denies ear pain, rhinorrhea or sore throat Cardiovascular Cardiovascular: Reports as per HPI and chest pain; Denies orthopnea, palpitations or racing heartbeat Respiratory/Chest Respiratory/Chest: Reports dyspnea; Denies cough or orthopnea Gastrointestinal Gastrointestinal: Reports nausea; Denies abdominal pain, constipation, diarrhea or vomiting Genitourinary Genitourinary ED: Denies dysuria, hematuria or urinary frequency Musculoskeletal Musculoskeletal: Denies arthralgias or myalgias Integumentary Denies abscess or rash Neurologic Neurologic: Denies headache(s) or weakness Psychiatric Psychiatric: Denies anxiety, depression, suicidal ideation or suicidal thoughts Endocrine Endocrinology: Denies polydipsia, polyphagia or polyuria Allergic/Immunologic Allergic/Immunologic ED: Denies mouth swelling, tongue swelling or urticaria EXAM Physical Exam Const Vital Signs: 01/21/25 08:29 01/21/25 09:28 01/21/25 10:00 Temperature 96.8 F L Temperature Source Temporal Pulse Rate 95 87 87 Respiratory Rate 16 16 16 Blood Pressure 141/78 H 142/72 H 138/68 H Blood Pressure Mean 99 95 91 Pulse Ox 100 97 98 Oxygen Delivery Method Room Air 01/21/25 11:00 Temperature Temperature Source Pulse Rate 86 Respiratory Rate 16 Blood Pressure 173/78 H Blood Pressure Mean 109 Pulse Ox 98 Oxygen Delivery Method Positive well nourished and well developed General Appearance ED: well developed and NAD HEENT Reports normocephalic, head/scalp atraumatic and moist mucous membranes Eyes PERRL and EOMs intact bilaterally Neck no lymphadenopathy, supple and no JVD Chest Wall inspection of chest normal and palpation of chest normal Resp normal respiratory effort and clear to auscultation bilaterally Cardio regular rate, regular rhythm and no murmurs GI normal to inspection, nondistended, normoactive bowel sounds and non-tender Palpation: soft Back/Spine no CVA tenderness and normal ROM Extremity normal to inspection General Extremety ED: Negative for edema General Extremity: Negative for edema Neuro oriented x3 and CN's II-XII intact bilaterally Sensorium / Orientation: alert Motor Exam: strength 5/5 throughout Psych mental status grossly normal Mood & Affect: anxious; Negative for depressed or tearful Skin no rashes or lesions noted and no wounds Heart Score History: Moderately Suspicious ECG: Nonspecific Repolarization Age: >45 - <65 years Risk Factors: 1 or 2 Risk Factors Troponin: </= Normal Limit Score: 4 MDM MDM MDM Narrative Medical decision making narrative: Differential diagnosis includes but not limited to acute coronary syndrome aortic aneurysm dissection pulmonary embolism cardiac dysrhythmia dehydration alcohol withdrawal electrolyte abnormalities pneumonia malignancy Patient's EKG shows a normal sinus rhythm at a rate of 90. Do not appreciate significant change from EKG dated 13 November 2014. My independent interpretation of the chest x-ray is no acute process. White count 6.9 hemoglobin of 13 platelet count of 284. D-dimer 0.36. INR 0.9. Glucose 102 normal electrolytes normal creatinine at 0.99. Normal liver enzymes and lipase. Initial troponin is 13. Troponin #2 is 14 Patient was observed on the monitor. He remains in a normal sinus rhythm. Patient got a GI cocktail without significant improvement. I do not feel the patient has dissection aneurysm PE or acute coronary syndrome at this time. We talked about starting omeprazole and having follow-up for possible endoscopy. He has had an upper GI in the past with findings. Patient should follow-up with primary care. History & Record Review Discussion w/independent historian: Patient Additional record(s) reviewed:: Prior ED visit and Prior labs Lab Data Attestation: I reviewed the patient's lab results. Labs: Laboratory Results - last 24 hr 01/21/25 01/21/25 09:05 10:40 WBC 6.9 RBC 3.86 L Hgb 13.0 Hct 36.7 L MCV 95.1 H MCH 33.7 H MCHC 35.4 RDW Std Deviation 42.2 RDW Coeff of Breanne 12.1 Plt Count 284 MPV 9.1 Immature Gran % (Auto) 0.600 Neut % (Auto) 67.8 Lymph % (Auto) 22.9 Traill % (Auto) 6.6 Eos % (Auto) 1.5 Baso % (Auto) 0.6 Absolute Neuts (auto) 4.7 Absolute Lymphs (auto) 1.57 Nucleated RBC % 0 PT 12.5 INR 0.9 APTT 22.3 L D-Dimer Quant (PE/DVT) 0.36 Sodium 135 Potassium 3.8 Chloride 99 Carbon Dioxide 24.7 Anion Gap 11 BUN 20 H Creatinine 0.99 Estim Creat Clear Calc 72.93 Est GFR (MDRD) Non-Af 85 BUN/Creatinine Ratio 20.4 H Glucose 102 H Calcium 9.4 Magnesium 2.0 Total Bilirubin 0.28 Direct Bilirubin 0.14 AST 17 ALT 23 Alkaline Phosphatase 58 Troponin T High Sens 13 Troponin T Hi Sens 2 Hr 14 Total Protein 6.8 Albumin 3.9 Globulin 2.8 Lipase 58 Radiography Diagnostic Testing: Clinical Impression(s) from Imaging Studies Chest X-Ray 01/21/25 09:01 IMPRESSION: Elevation of the right hemidiaphragm. The lungs are clear. Reading Location: [facility] EKG Initial EKG: Attestation: I personally reviewed and interpreted this EKG as follows: Comments: Normal sinus rhythm ventricular rate of [address]-T wave abnormality. Prior EKG tracings: available for review Prior: Unchanged Discharge Plan Triage Chief Complaint: Chest Pain ED Provider: Antione Harvey Dx/Rx/DC Orders Clinical Impression: Chest pain, Tobacco use, HTN (hypertension) Instructions: ED Chest Pain, Uncertain Cause Prescriptions: New omeprazole 20 mg capsule,delayed release(DR/EC) 20 mg PO BID Qty: 28 0RF hydrocodone-acetaminophen 5-325 mg tablet 1 tab PO Q6H PRN (Reason: pain) 3 Days Qty: 12 0RF No Action valsartan-hydrochlorothiazide 160-12.5 mg tablet 1 tab PO DAILY ibuprofen 200 mg tablet 400 mg PO Q4H PRN (Reason: fever or pain) Primary Care Provider: Ronak Simmons Referrals: Ronak Simmons MD [Primary Care Provider, Family Practice] - As soon as possible Print Language: Kyrgyz Disposition Disposition: Home, Self Care
--- NOTE | 2025-01-21 09:01 | RAD_ITS ---
PROCEDURE: CHEST 1 VIEW (PORTABLE) 01/21/2025 REASON FOR EXAM: CHEST PAIN TECHNIQUE: Frontal view of the chest. COMPARISON: None FINDINGS: Hardware: EKG electrodes are seen. Heart: The heart size is normal. Lungs: Elevation of the right hemidiaphragm. The lungs are clear. Bones: Degenerative changes are identified within the thoracic spine. RAD/Chest 1 View (Portable) IMPRESSION: Elevation of the right hemidiaphragm. The lungs are clear. Reading [facility]
[2025-01-21 09:20] LABS: Hematocrit 36.7 % (40-54); Hemoglobin 13.0 g/dL (13.0-16.5); Immature Granulocytes Count 0.040 X10^3/uL (0.0-0.0); Mean Corp Hgb Conc 35.4 g/dL (32-36); Mean Corpuscular Volume 95.1 fL (80-94); Mean Platelet Vol. 9.1 fl (6.2-12.0); NRBC Flagged by Analyzer 0 % (0-5); Platelet Count 284 K/mm3 (150-450); RBC Distribution Width CV 12.1 % (11.6-14.6); RBC Distribution Width SD 42.2 fl (35.1-43.9); Red Blood Count 3.86 M/mm3 (4.6-6.2); White Blood Count 6.9 K/mm3 (4.4-11.0)
[2025-01-21 09:28] VITALS: BP 142/72; PULSE 87; RESP 16; O2SAT 97
[2025-01-21 09:34] LABS: Prothrombin Time (Protime)PT. 12.5 SECONDS (11.7-14.9)
[2025-01-21 09:35] LABS: Partial Thromboplast Time 22.3 Seconds (24.1-36.2)
[2025-01-21 09:36] LABS: AST(SGOT) 17 U/L (<=37); Alanine Aminotransfer ALT/SGPT 23 U/L (<=46); Albumin, Serum 3.9 g/dL (3.4-4.8); Alkaline Phosphatase 58 U/L (40-129); Anion Gap 11 (5-15); BUN 20 mg/dL (4-19); BUN/Creat Ratio 20.4 RATIO (10-20); Bilirubin, Direct 0.14 mg/dL (0.00-0.30); Calcium,Total 9.4 mg/dL (7.6-11.0); Carbon Dioxide 24.7 mmol/L (21.0-32.0); Chloride 99 mmol/L (98-108); Estimated Creatinine Clearance 72.93 ml/min (50-250); Globulin 2.8 g/dL (2.2-4.2); Glucose 102 mg/dL (70-99); Lipase 58 U/L (13-75); Magnesium 2.0 mg/dL (1.5-2.2); Potassium 3.8 mmol/L (3.3-5.1); Troponin T High Sensitivity 13 ng/L (<=22)
[2025-01-21 09:44] LABS: D-Dimer Quantitative (DVT/PE) 0.36 FEU/ug/m (0.27-0.49)
[2025-01-21 10:00] VITALS: BP 138/68; PULSE 87; RESP 16; O2SAT 98
[2025-01-21] MEDS: Lidocaine 2% Viscous15 ML UDC 15 ML PO (10:49)
[2025-01-21 11:00] VITALS: BP 173/78; PULSE 86; RESP 16; O2SAT 98
[2025-01-21 11:32] LABS: Troponin T High Sens 2 HR 14 ng/L (<=22)
[2025-01-21 11:50] VITALS: BP 164/79; PULSE 89; RESP 12; TEMP 36.9; O2SAT 97
== END 2025-01-21 11:56 | disposition home or self-care (01) ==
PROVIDERS: Emergency Provider Emergency Medicine; PCP Family Medicine; Visit Provider Emergency Medicine
DX: R07.89 Other chest pain (principal); I10 Essential (primary) hypertension; F17.210 Nicotine dependence, cigarettes, uncomplicated; R06.00 Dyspnea, unspecified; Z79.899 Other long term (current) drug therapy
CPT/HCPCS: 71045; 80048; 80076; 83690; 83735; 84484; 85025; 85379; 85610; 85730; 93005; 99284; A4216